=== PATIENT | female | born 1930 | race Caucasian/White ===

== ENCOUNTER 2017-03-29 10:51 | Inpatient (IN) | payer MEDICARE, OTHER ==
[~2017-03-29] VITALS: Ht 157.5 cm; Wt 64.4 kg
[2017-03-29] VITALS (7 sets, daily range): BP systolic 108–142; BP diastolic 47–80; PULSE 67–81; RESP 18–20; O2SAT 93–99
--- NOTE | 2017-03-29 10:58 | ED.REPORT ---
HPI-Altered Mental Status Date of Service Mar 29, 2017 ED Provider: Jose Chan DO An 86 year old female with a history of recurrent UTI's, hypertension hypothyroidism, acid reflux disease and hyperlipidemia presents to the ED via EMS with worsening weakness and confusion that occurred this afternoon. The patient's friends reportedly contacted EMS after finding the patient on the ground with significant confusion. Patient is unsure how long she was laying on the ground and denies any memory of a fall. The patient was reportedly diagnosed with a UTI on 03/25. Patient denies any pain. She has taken her medication as directed except for this morning. Patient denies history of kidney failure. Nursing Notes Stated Complaint: CONFUSION Chief Complaint: General Complaint Nursing Notes Reviewed: Yes Allergies: Coded Allergies: Penicillins (Verified Allergy, Severe, 05/10/09) Scheduled Alendronate (Alendronate) 35 Mg Tablet 35 MG PO WEEKLY Amlodipine (Amlodipine) 2.5 Mg Tablet 2.5 MG PO DAILY Aspirin (Aspirin) 81 Mg Tablet 81 MG PO HS Calcium Carbonate/Vitamin D3 (Calcium + Vitamin D Tablet) 1 Each Tablet 1 EACH PO BID Estrogens Conjugated (Premarin) 0.625 Mg Tablet 0.625 MG PO DAILY Levothyroxine (Levothyroxine) 100 Mcg Tablet 100 MCG PO DAILY Losartan/HCTZ 100-25 mg (Hyzaar 100-25 mg) 1 Each Tablet 1 TABLET PO DAILY Metoprolol Tartrate (Metoprolol Tartrate) 50 Mg Tablet 50 MG PO BID Nebivolol (Bystolic) 2.5 Mg Tablet 2.5 MG PO QAM Simvastatin (Simvastatin) 20 Mg Tablet 20 MG PO HS Vit A/Vit C/Vit E/Zinc/Copper (Preservision Areds Softgel) 1 Each Capsule 1 EACH PO BID General Time Seen by MD: 10:55 Chief Complaint Confused Hx Obtained From: Patient Arrived By: Ambulance Sudden in Onset?: No Onset Occurred: Just prior to arrival Symptom Duration: Since onset Pertinent Negative: Pt denies other symptoms Recent Healthcare: No recent hospitalization, Recent doctor visit Risk Factors )( IC Bleed Risk Strat RF Statements: Risk factors reviewed )( SAH Risk Stratification RF Statements: Risk factors reviewed Past Medical History Past Medical History Hypertension Hyperlipidemia Hypothyrodism Recurrent UTI's Acid reflux disease Past Surgical History None reported. Smoking History Unknown if Ever Smoker Social History Other Social History: Good social support, Lives alone, Local resident Ambulatory Status Independent Review of Systems + recent fall + memory loss Neurologic: Reports: Weakness Psychiatric: Reports: Confusion Complete sys rev & neg: except as marked. Physical Exam Initial Vital Signs Vital Signs (First) Date Time Temp Pulse Resp B/P Pulse Ox O2 Delivery O2 Flow Rate FiO2 03/29/17 10:52 36.2 81 20 129/61 99 Room Air Initial VS: Reviewed Extremities: Vascular intact, Neuro intact, No swelling, No tenderness Skin: Warm, Dry, No cyanosis Psychiatric: Mood/affect normal, Behavior normal, Normal thought content General/Constitutional: Awake, Alert, No acute distress GENERAL: Hard of hearing Head / Eyes: Atraumatic, Normocephalic, PERRL Neck: Atraumatic, Supple, Full range of motion Respiratory / Chest: Atraumatic, Breath sounds NL, Breath sounds = bilat, No respiratory distress RESPIRATORY: Cough present Cardiovascular: Heart rate NL, Regular rhythm, Heart sounds NL Neurologic: Oriented X3, Speech NL, No motor deficits, No sensory deficits, CN II - XII intact, Reflexes equal bilat Abdomen: Atraumatic, Soft, Non-tender, No guarding, No rebound, No distention Back: Atraumatic, Inspection NL, Non-tender, No midline vertebral tend, No paraspinal tenderness Interpretation & Diagnostics Lab Results Interpretation Result Diagram: 03/29/17 1120 03/29/17 1120 Test 03/29/17 11:20 03/29/17 11:24 03/29/17 11:57 White Blood Count 27.4th/mm3 (3.8-10.1) Red Blood Count 4.22mil/mm3 (3.90-5.20) Hemoglobin 12.4g/dL (12.0-15.6) Hematocrit 35.3% (35.0-46.0) Mean Corpuscular Volume 83.6fL (81-100) Mean Corpuscular Hemoglobin 29.4pg (27.0-35.0) Mean Corpuscular Hemoglobin Concent 35.1% (32.0-37.0) Red Cell Distribution Width 13.7% (12.3-15.4) Platelet Count 214bil/L (150-400) Neutrophils (%) (Auto) 90% (40-74) Lymphocytes (%) (Auto) 2% (14-46) Monocytes (%) (Auto) 4% (4-12) Eosinophils (%) (Auto) 0% (0-5) Basophils (%) (Auto) 0% (0-3) Band Neutrophils % 4% (1-5) Prothrombin Time 11.2sec (8.1-12.5) Prothromb Time International Ratio 1.05ratio Sodium Level 133mEq/L (134-144) Potassium Level 3.3mEq/L (3.5-5.2) Chloride Level 92mEq/L (97-108) Carbon Dioxide Level 18mmol/L (18-29) Blood Urea Nitrogen 73mg/dL (8-27) Creatinine 4.64mg/dL (0.57-1.00) Estimat Glomerular Filtration Rate 13mL/min (>59) Glucose Level 97mg/dL (60-99) Calcium Level 10.7mg/dL (8.5-10.1) Magnesium Level 1.5mg/dL (1.6-2.6) Total Bilirubin 0.5mg/dL (0.0-1.2) Aspartate Amino Transf (AST/SGOT) 84U/L (0-50) Alanine Aminotransferase (ALT/SGPT) 42U/L (0-32) Alkaline Phosphatase 196U/L (25-165) Total Creatine Kinase 1997U/L (21-215) Troponin T 0.026ug/L (0.0-0.011) Total Protein 7.1g/dL (6.4-8.4) Albumin 2.9g/dL (3.4-5.0) Procalcitonin 58.00ng/mL (0.00-0.08) Urine Color Straw (YELLOW) Urine Appearance Hazy (CLEAR,HAZY) Urine pH 6.0 (5.0-8.0) Urine Specific [place] 1.015 (1.003-1.035) Urine Protein 100mg/dL (NEG,TRACE) Urine Glucose (UA) Negativemg/dL (NEGATIVE) Urine Ketones Negativemg/dL (NEGATIVE) Urine Occult Blood Large (NEGATIVE) Urine Nitrite Negative (NEGATIVE) Urine Bilirubin Negative (NEGATIVE) Urine Urobilinogen Normalmg/dL (NORMAL) Urine Leukocyte Esterase Large (NEGATIVE) Urine RBC 3-10/hpf (0-2) Urine WBC >50/hpf (0-5) Urine Epithelial Cells Occasional/hpf (NONE-MOD) Urine Crystals None seen (NONE SEEN) Urine Bacteria Many/hpf (NONE-FEW) Urine Hyaline Casts None/lpf (NONE) Urine Granular Casts None seen (NONE SEEN) Urine Waxy Casts None seen (NONE SEEN) Urine Red Blood Cell Casts None seen (NONE SEEN) Urine White Blood Cell Casts None seen (NONE SEEN) Urine Mucus None seen (None Seen) Urine Trichomonas None seen (NONE SEEN) Urine Yeast None (NONE SEEN) Urinalysis Comment None Urine Culture Reflexed Indicated Hold Purple Top Tube Received (Received) Hold Blue Top Tube Received (Received) Lactic Acid Level 2.2mmol/L (0.4-2.0) Hold [place] Top Tube Received (Received) ECG Interpretation ECG Interpretation: Sinus Rhythm Rate 73 bpm Incomplete LBBB Time: 11:29 Interpreted by: ED physician X-Ray Chest Interpretation Chest Xray Interpretation: IMPRESSION: Bibasilar pulmonary opacities may represent atelectasis caused by shallow inspiration. Recommend confirmation with a PA and lateral chest radiograph performed when the patient is able to follow breathing instructions. Dictated by: Ajay Tom M.D. on 03/29/2017 at 11:49 Interpretation / Wet Read by: Interpret - Radiologist CT Head Interpretation IMPRESSION: 1. No acute intracranial abnormality. 2. Age-related atrophy and chronic white matter ischemic changes. Dictated by: James Hare M.D. on 03/29/2017 at 12:29 Study: Head CT no contrast Interpretation / Wet Read by: Interpret - Radiologist Re-Eval/Medical Decision Med Decision/Clinical Course Likely urosepsis with superimposed acute kidney injury. IV Rocephin given. Patient will be admitted. Re-Evaluation/Progress #1: Time of Eval: 12:23 Re-Evaluation/Progress Note: Symptoms have improved upon recheck. She is informed of her current results. Re-Evaluation/Progress #2: Time of Eval: 12:33 Patient Status: Condition improved Re-Evaluation/Progress Note: Patient is rechecked. She is informed of the plan to admit. Consultation : Referral / Consult Name: Linda Alexander DO Consulted With: Hospitalist Call Returned at: 12:58 Regional Driver: Will see patient, Agrees with eval, Agrees with plan, Accepts admit Note: Discussed pt condition. Will accept admission. Counseled Regarding: Diagnosis, Lab results, Need for admission Patient Discharge & Departure Impression: Primary Impression: Rhabdomyolysis Rhabdomyolysis type: non-traumatic Qualified Code: M62.82 - Rhabdomyolysis Additional Impressions: Urinary tract infection Urinary tract infection type: site unspecified Hematuria presence: without hematuria Qualified Code: N39.0 - Urinary tract infection, site not specified Dehydration Acute renal injury Disposition: ADMITTED TO HOSPITAL Discharge Condition All VS Reviewed: Yes Condition: Stable Referrals: Bartolo Durán MD (PCP) Scribe Attestation Portions of this note were transcribed by Julita Avalos. I, Dr. Josh Valentin, personally performed the history, physical exam and medical decision-making; I reviewed and confirmed the accuracy of the information in the transcribed note. Signed by: Julita Avalos, 03/29/17. copies to: Bartolo Durán MD, Timothy S DO Mar 29, 2017 10:58 JULITA AVALOS Mar 29, 2017 11:15
[2017-03-29] MEDS ORDERED: 0.9% Sodium Chloride 1,000 ML IV ONE (11:16)
[2017-03-29 11:28] LABS: Mean Corpuscular Hemoglobin 29.4 pg (27.0-35.0); Mean Corpuscular Volume 83.6 fL (81-100); Platelet Count 214 bil/L (150-400)
[2017-03-29 11:34] LABS: INR 1.05 ratio
--- NOTE | 2017-03-29 11:53 | DRSVH ---
PROCEDURE: X-RAY CHEST ONE VIEW, PORTABLE ([id number]) INDICATIONS: generalized weakness TECHNIQUE: One view of the chest was acquired. COMPARISON: None. FINDINGS: Surgical changes and devices: None. Lungs and pleura: No pleural effusions or pneumothorax. Right basilar pulmonary opacities otherwise the lungs are clear. Mediastinum: Prominent cardiomediastinal silhouette cause at least partially by shallow inspiration. Bones and chest wall: No suspicious bony lesions. Overlying soft tissues appear unremarkable. Left shoulder degenerative change. IMPRESSION: Bibasilar pulmonary opacities may represent atelectasis caused by shallow inspiration. Recommend conf irmation with a PA and lateral chest radiograph performed when the patient is able to follow breathin g instructions. Dictated by: Ajay Tom M.D. on 03/29/2017 at 11:49 Approved by: Ajay Tom M.D. on 03/29/2017 at 11:51
[2017-03-29] MEDS ORDERED: 0.9% Sodium Chloride 1,000 ML IV SCH ×2 (11:55→14:03)
[2017-03-29 11:58] LABS: APPEARANCE,URINE HAZY (CLEAR,HAZY); COLOR,URINE STRAW (YELLOW)
[2017-03-29 11:59] LABS: OCCULT BLOOD,URINE LARGE (NEGATIVE); UROBILINOGEN,URINE NORMAL (NORMAL)
[2017-03-29] MEDS ORDERED: cefTRIAXone Inj 2,000 MG in Dextrose 5% Minibag Plus 50 ML IV ONE (12:05)
[2017-03-29 12:21] LABS: Magnesium 1.5 mg/dL (1.6-2.6); TROPONIN T 0.026 ug/L (0.0-0.011)
[2017-03-29] MEDS ORDERED: Magnesium Sulf 2 Gm/50mL Water 2 GM in IV Premix 1 EACH IV ONE ×2 (12:25→15:45)
[2017-03-29] MEDS ORDERED: Potassium Chloride 20 mEq/15 mL 15mL Oral Soln PO ONE (12:30)
--- NOTE | 2017-03-29 12:33 | DRSVH ---
PROCEDURE: CT BRAIN WITHOUT CONTRAST ([id number]) INDICATIONS: weakness, fall TECHNIQUE: Noncontrast 4.5 mm thick angled axial sections acquired from the foramen magnum to the vertex, with c oronal reformats. COMPARISON: None. FINDINGS: Image quality: Excellent. CSF spaces: Basal cisterns are patent. No extra-axial fluid collections. The ventricles are symmet shay in size and shape. Brain: No intracranial bleeds or masses. There is cerebral volume loss for age, with resultant vent ricular and sulcal prominence. There are periventricular and deep white matter chronic small vessel ischemic changes. There is intracranial internal carotid artery atherosclerosis. Skull and face: Calvarium and visualized facial bones appear intact, without suspicious lesions. Sinuses: Visualized sinuses and mastoids are clear. IMPRESSION: 1. No acute intracranial abnormality. 2. Age-related atrophy and chronic white matter ischemic changes. Dictated by: James Hare M.D. on 03/29/2017 at 12:29 Approved by: James Hare M.D. on 03/29/2017 at 12:31
[2017-03-29 12:49] LABS: BASOPHILS % (AUTO) 0 % (0-3); EOSINOPHILS % (AUTO) 0 % (0-5); MONOCYTES % (AUTO) 4 % (4-12); NEUTROPHILS % (AUTO) 90 % (40-74)
--- NOTE | 2017-03-29 13:04 | PCM.HPMED ---
Subjective Date of Service Mar 29, 2017 Primary Provider: Admitting Physician: Primary Care Physician: Bartolo Druán MD Attending Physician: Chief Complaint: Fall with altered mental status History of Present Illness: The patient is 86-year-old female who presents to the emergency room secondary to altered mental status. The patient currently lives at home alone and her friends had not seen her in a while and stopped by to see her and found her down on the ground and the place was disheveled and they decided to call EMS. When asked the patient stated that the last thing she remembered was that she was on her way to the bathroom but then fell however she is unable to state how long she had been down or if she had hit her head. The patient is currently confused and is unable to answer all questions appropriately. A CT of the head was done as the patient was unable to remember if she had which was found to be negative for any acute intracranial processes. A chest x-ray was also performed in the ED which shows bibasilar pulmonary opacities however this may be consistent with atelectasis. The patient's white blood cell count was found to be significantly elevated at 27.4 with 4% bands, patient's sodium was 133, potassium 3.3, creatinine 4.64, troponin 0.026, procalcitonin 58, lactic acid 2.2, magnesium 1.5. The patient' s urine was positive for many bacteria and leukocyte esterase. Patient's urine was sent for culture and the patient is being admitted for acute encephalopathy most likely secondary to cystitis The patient has altered mental status and there were no family members at the side of the bed nor was anybody able to be reached by phone. The patient's history was taken via chart review, EMS, and pharmacy review. Allergies Coded Allergies: Penicillins (Verified Allergy, Severe, 05/10/09) [facility] Social History Smoking Status: Unknown if Ever Smoker Exam Vital Signs Vital Sign - Last Date Time Temp Pulse Resp B/P Pulse Ox O2 Delivery O2 Flow Rate FiO2 03/29/17 12:51 35.0 72 20 108/80 98 Room Air Lab and Diagnostics Result Diagram: 03/29/17 1120 03/29/17 1120 Assessment & Plan Home medications: Obtained through pharmacy Alendronate 35 mg by mouth weekly Amlodipine 2.5 mg daily Aspirin 81 mg by mouth daily at bedtime Calcium carbonate with vitamin D3 one by mouth twice a day Premarin 0.625 by mouth daily Levothyroxine 100 g daily Losartan/hydrochlorothiazide 100/25 mg by mouth daily Metoprolol 50 mg by mouth twice a day Simvastatin 20 mg by mouth daily at bedtime PreserVision 1 by mouth twice a day Allergies: Penicillin causes swelling PMHx: Osteoporosis Hypertension Hypothyroidism Hyperlipidemia Possible CAD SHx: Unknown secondary to patient has altered mental status and no family members could be contacted FHx: Unknown secondary to patient having altered mental status and no family members could be contacted SocHx: Unknown secondary to patient having altered mental status and no family members could be contacted Occupation: Tobacco history: Patient denies Alcohol use: Patient denies Drug use: Patient denies ROS: A complete review of systems was performed or attempted to be performed. Please see HPI for pertinent positives, all other systems are negatives as much as could be gathered from the patient. Physical Exam: GEN: Patient was awake, alert, not responding appropriately to questions and seemed confused but able to follow directions HEENT: Pupils equal round and reactive to light, extraocular eye muscles intact , Neck soft supple, trachea midline, nomocephalic/atraumatic CV: +S1/S2, regular rate and rhythm, no murmur auscultated Respiratory: CTAB, no wheezes, rales, rhonchi GI: +bowel sounds x4, soft, compressible, nontender to palpation EXT: no clubbing, cyanosis, edema Neuro: Cranial nerves II-XII grossly intact Psych: mood and affect were distracted Assessment and Plan 86-year-old female with past medical history of osteoporosis, hypertension, hypothyroidism, hyperlipidemia, possible CAD presents for a fall down for unknown time and sepsis and acute encephalopathy most likely secondary to cystitis Sepsis with acute encephalopathy most likely secondary to acute cystitis, present on admission, active - Patient meets criteria secondary to temperature 35C, blood cell count 27.4, urine as a source of infection -Urine culture results pending -Blood cultures results pending - Continue 2 g of Rocephin daily -Continue gentle hydration -Follow up labs in the morning - Swallow eval for safety as patient is currently encephalopathic - Continue to trend procalcitonin and lactic acid -Continue to monitor Rhabdomyolysis most likely secondary to prolonged stay on the ground secondary to fall, present on admission, active -CK 1996 -Continue gentle hydration 100 mL an hour (unsure if patient has a history of CHF continue to monitor for volume overload) -Continue to monitor Acute kidney injury most likely secondary to dehydration, present on admission, acute -Continue with gentle hydration -Continue to monitor - Hold losartan and HCTZ Hypomagnesemia, present on admission, active -Magnesium is currently 1.5 -Replete with 2 g of mag (03/29/2017) - Follow-up labs in the morning Hypokalemia, present on admission, active -Potassium on admission was 3.3 -Replete with 40 mEq IV 1 dose -Follow up labs in the morning -Continue to monitor Elevated LFTs, present on admission, active -Most likely secondary to rhabdomyolysis and sepsis -Continue monitor Hypothyroidism, present on admission, stable -Follow up TSH -Continue levothyroxine 100 g by mouth daily Hyperlipidemia, present on admission, stable -Lipid panel pending -Continue simvastatin 20 mg by mouth daily at bedtime Hypertension, present on admission, stable -Currently controlled -Continue metoprolol by mouth twice a day -Hold losartan and HCTZ as patient has acute kidney injury - Hold amlodipine may restart when patient's blood pressure becomes elevated Code Status: Full code Disposition: Due to the nature of the patient's current diagnosis anticipated stay is greater than 2 midnight. At this time nursing is trying to contact one of the patient's 5 sons in order to let them know that the patient is here. The patient did state that the person who found her stated that he would contact her family however unsure if this is true or not as the patient does have acute encephalopathy. At this time because no family is able to be found in order to verify the patient's CODE STATUS she remains full code. Time spent greater than 45 min Linda Alexander DO Mar 29, 2017 13:04
[2017-03-29] MEDS ORDERED: NEBI2.5T5 PO (13:43)
[2017-03-29] MEDS ORDERED: SIMV20TA4 PO (13:43)
[2017-03-29] MEDS ORDERED: ALEN35TA31 PO (13:43)
[2017-03-29] MEDS ORDERED: CALC-140 PO (13:43)
[2017-03-29] MEDS ORDERED: VIT1CAPS10 PO (13:43)
[2017-03-29] MEDS ORDERED: LOSA1TAB15 PO (13:43)
[2017-03-29] MEDS ORDERED: ASPI-973 PO (13:43)
[2017-03-29] MEDS ORDERED: PRE625 PO (13:43)
[2017-03-29] MEDS ORDERED: METO50TA3 PO (13:43)
[2017-03-29] MEDS ORDERED: LEVO100T6 PO (13:43)
[2017-03-29] MEDS ORDERED: AMLO2.5T PO (13:43)
[2017-03-29] MEDS ORDERED: Ondansetron 2 mg/mL 2 mL Inj IVPUSH PRN ×2 (14:05→15:05)
[2017-03-29] MEDS ORDERED: Alum-Mag Hydrox-Simeth 30 mL Suspension PO PRN ×2 (14:05→15:05)
[2017-03-29] MEDS: 0.9% Sodium Chloride 1,000 ML IV SCH ×2 (15:02→22:51)
[2017-03-29] MEDS ORDERED: Polyethylene Glycol (PEG) 17 Gm Powder PO PRN (15:05)
[2017-03-29] MEDS ORDERED: KCl 40 mEq/D5W 500 mL 40 MEQ in IV Premix 1 EACH IV ONE (15:45)
[2017-03-29] MEDS ORDERED: KCl 20 mEq/250 mL D5W (K 3 - 3.7 & Cr 2.1 - 2.9) IV ONE ×2 (16:05)
[2017-03-29] MEDS: Heparin 5,000 Unit/mL Inj SUBQ SCH (16:58)
[2017-03-29] MEDS: Vitamin B Complex/Vit C Tablet PO SCH (20:14)
[2017-03-30] VITALS (9 sets, daily range): BP systolic 113–146; BP diastolic 53–77; PULSE 72–86; RESP 16–18; O2SAT 93–94
[2017-03-30] MEDS: Heparin 5,000 Unit/mL Inj SUBQ SCH ×3 (00:33→16:42)
[2017-03-30 06:47] LABS: BASOPHILS % (AUTO) 0.1 % (0-3); EOSINOPHILS % (AUTO) 1.4 % (0-5); Mean Corpuscular Hemoglobin 29.3 pg (27.0-35.0); Mean Corpuscular Volume 82.9 fL (81-100); NEUTROPHILS % (AUTO) 84.7 % (40-74); Platelet Count 190 bil/L (150-400)
[2017-03-30] MEDS: Vitamin B Complex/Vit C Tablet PO SCH ×2 (08:20→20:27)
[2017-03-30] MEDS: 0.9% Sodium Chloride 1,000 ML IV SCH ×2 (08:27→09:29)
[2017-03-30] MEDS ORDERED: cefTRIAXone Inj 2,000 MG in Dextrose 5% Minibag Plus 50 ML IV SCH (08:30)
--- NOTE | 2017-03-30 08:38 | PCM.PNMED ---
Subjective Date of Service Mar 30, 2017 Subjective Pt has rigors this AM. Alert and Awake Exam Vital Signs Vital Sign - Last Date Time Temp Pulse Resp B/P Pulse Ox O2 Delivery O2 Flow Rate FiO2 03/30/17 06:11 81 03/30/17 04:34 36.9 16 114/65 93 Room Air Intake and Output 03/29/17 03/29/17 03/30/17 Cumulative From/Thru 15:00 23:00 07:00 03/29/17 10:52 - 03/30/17 06:50 Intake Total 1998 ml 525 ml 2229 ml 4752 ml Output Total 250 ml 400 ml 650 ml Balance 1998 ml 275 ml 1829 ml 4102 ml Intake Oral 525 ml 300 ml 825 ml IV Total 1998 ml 1929 ml 3927 ml Output Urine Total 250 ml 400 ml 650 ml # Bowel Movements 1 1 Exam GEN: Patient was awake, alert, +Rigors HEENT: Pupils equal round and reactive to light, extraocular eye muscles intact , Neck soft supple, trachea midline, nomocephalic/atraumatic CV: +S1/S2, regular rate and rhythm, no murmur auscultated Respiratory: CTAB, no wheezes, rales, rhonchi GI: +bowel sounds x4, soft, compressible, nontender to palpation No CVAT EXT: no clubbing, cyanosis, edema Neuro: Cranial nerves II-XII grossly intact Psych: mood and affect were distracted IVs and Medications Medications Reviewed: Medications were reviewed in detail Lab and Diagnostics Result Diagram: 03/30/17 0624 03/30/17 0624 Microbiology Laboratory Tests Test 03/29/17 11:20 03/29/17 11:24 03/29/17 11:57 03/29/17 17:17 White Blood Count 27.4th/mm3 (3.8-10.1) Red Blood Count 4.22mil/mm3 (3.90-5.20) Hemoglobin 12.4g/dL (12.0-15.6) Hematocrit 35.3% (35.0-46.0) Mean Corpuscular Volume 83.6fL (81-100) Mean Corpuscular Hemoglobin 29.4pg (27.0-35.0) Mean Corpuscular Hemoglobin Concent 35.1% (32.0-37.0) Red Cell Distribution Width 13.7% (12.3-15.4) Platelet Count 214bil/L (150-400) Neutrophils (%) (Auto) 90% (40-74) Lymphocytes (%) (Auto) 2% (14-46) Monocytes (%) (Auto) 4% (4-12) Eosinophils (%) (Auto) 0% (0-5) Basophils (%) (Auto) 0% (0-3) Band Neutrophils % 4% (1-5) Prothrombin Time 11.2sec (8.1-12.5) Prothromb Time International Ratio 1.05ratio Sodium Level 133mEq/L (134-144) Potassium Level 3.3mEq/L (3.5-5.2) Chloride Level 92mEq/L (97-108) Carbon Dioxide Level 18mmol/L (18-29) Blood Urea Nitrogen 73mg/dL (8-27) Creatinine 4.64mg/dL (0.57-1.00) Estimat Glomerular Filtration Rate 13mL/min (>59) Glucose Level 97mg/dL (60-99) Calcium Level 10.7mg/dL (8.5-10.1) Magnesium Level 1.5mg/dL (1.6-2.6) Total Bilirubin 0.5mg/dL (0.0-1.2) Aspartate Amino Transf (AST/SGOT) 84U/L (0-50) Alanine Aminotransferase (ALT/SGPT) 42U/L (0-32) Alkaline Phosphatase 196U/L (25-165) Total Creatine Kinase 1997U/L (21-215) Troponin T 0.026ug/L (0.0-0.011) 0.024ug/L (0.0-0.011) Total Protein 7.1g/dL (6.4-8.4) Albumin 2.9g/dL (3.4-5.0) Procalcitonin 58.00ng/mL (0.00-0.08) Urine Color Straw (YELLOW) Urine Appearance Hazy (CLEAR,HAZY) Urine pH 6.0 (5.0-8.0) Urine Specific [place] 1.015 (1.003-1.035) Urine Protein 100mg/dL (NEG,TRACE) Urine Glucose (UA) Negativemg/dL (NEGATIVE) Urine Ketones Negativemg/dL (NEGATIVE) Urine Occult Blood Large (NEGATIVE) Urine Nitrite Negative (NEGATIVE) Urine Bilirubin Negative (NEGATIVE) Urine Urobilinogen Normalmg/dL (NORMAL) Urine Leukocyte Esterase Large (NEGATIVE) Urine RBC 3-10/hpf (0-2) Urine WBC >50/hpf (0-5) Urine Epithelial Cells Occasional/hpf (NONE-MOD) Urine Crystals None seen (NONE SEEN) Urine Bacteria Many/hpf (NONE-FEW) Urine Hyaline Casts None/lpf (NONE) Urine Granular Casts None seen (NONE SEEN) Urine Waxy Casts None seen (NONE SEEN) Urine Red Blood Cell Casts None seen (NONE SEEN) Urine White Blood Cell Casts None seen (NONE SEEN) Urine Mucus None seen (None Seen) Urine Trichomonas None seen (NONE SEEN) Urine Yeast None (NONE SEEN) Urinalysis Comment None Urine Culture Reflexed Indicated Hold Purple Top Tube Received (Received) Hold Blue Top Tube Received (Received) Lactic Acid Level 2.2mmol/L (0.4-2.0) Hold Beryl Top Tube Received (Received) Test 03/30/17 06:24 White Blood Count 16.9th/mm3 (3.8-10.1) Red Blood Count 3.69mil/mm3 (3.90-5.20) Hemoglobin 10.8g/dL (12.0-15.6) Hematocrit 30.6% (35.0-46.0) Mean Corpuscular Volume 82.9fL (81-100) Mean Corpuscular Hemoglobin 29.3pg (27.0-35.0) Mean Corpuscular Hemoglobin Concent 35.3% (32.0-37.0) Red Cell Distribution Width 13.8% (12.3-15.4) Platelet Count 190bil/L (150-400) Neutrophils (%) (Auto) 84.7% (40-74) Lymphocytes (%) (Auto) 8.0% (14-46) Monocytes (%) (Auto) 5.0% (4-12) Eosinophils (%) (Auto) 1.4% (0-5) Basophils (%) (Auto) 0.1% (0-3) Sodium Level 136mEq/L (134-144) Potassium Level 3.5mEq/L (3.5-5.2) Chloride Level 101mEq/L (97-108) Carbon Dioxide Level 13mmol/L (18-29) Blood Urea Nitrogen 69mg/dL (8-27) Creatinine 3.97mg/dL (0.57-1.00) Estimat Glomerular Filtration Rate 15mL/min (>59) Glucose Level 108mg/dL (60-99) Lactic Acid Level 0.9mmol/L (0.4-2.0) Calcium Level 8.6mg/dL (8.5-10.1) Magnesium Level 2.0mg/dL (1.6-2.6) Total Bilirubin 0.2mg/dL (0.0-1.2) Aspartate Amino Transf (AST/SGOT) 33U/L (0-50) Alanine Aminotransferase (ALT/SGPT) 31U/L (0-32) Alkaline Phosphatase 130U/L (25-165) Total Creatine Kinase 202U/L (21-215) Total Protein 4.7g/dL (6.4-8.4) Albumin 2.1g/dL (3.4-5.0) Triglycerides Level 350mg/dL (0-149) Cholesterol Level 138mg/dL (100-199) LDL Cholesterol, Calculated 64.000mg/dL (0-99) VLDL Cholesterol 70.000mg/dL HDL Cholesterol 4mg/dL (>39) Cholesterol/HDL Ratio 34.50 (0.0-4.4) Procalcitonin 40.37ng/mL (0.00-0.08) Thyroid Stimulating Hormone (TSH) 7.050uIU/mL (0.450-4.500) Microbiology 03/29/17 Blood Culture, Received Pending 03/29/17 Urine Culture - Preliminary, Resulted X-Rays, CTs and MRIs 03/29/17 1116 X-RAY CHEST ONE VIEW, PORTABLE IMPRESSION: Bibasilar pulmonary opacities may represent atelectasis caused by shallow inspiration. Recommend confirmation with a PA and lateral chest radiograph performed when the patient is able to follow breathing instructions. Assessment & Plan 86-year-old female with past medical history of osteoporosis, hypertension, hypothyroidism, hyperlipidemia, possible CAD presents for a fall down for unknown time and sepsis and acute encephalopathy most likely secondary to cystitis Septicemia due to Ecoli Cystitis, present on admission, active - Criteria- temperature 35C, blood cell count 27.4, urine is likely source of infection. Urine culture- GNR. Blood cultures- +Ecoli. - Due to marked TRAY, contrast CT not ordered. Instead Renal US to evaluate for obstruction. - Rocephin started on 03/29, changed to Ertapenam on 03/30 500mg daily, renal dosing given worsening rigors. If GFR >30 can give full 1g qd dose. - Continue gentle hydration, add Bicarb gtt due to metabolic acidosis. Acute kidney injury, acute, active- Multifactorial etiology. Given Cystitis likely component of ATN. Rule out Post-Renal. Initial Scr 4.64. Modest improvement. - Rule out obstructive uropathy with Renal US. - Continue hydration. - Hold losartan and HCTZ - Monitor Scr for improvement. - Discussed case with Becky, will order for official consult if no improvement. - Consider Urology consult if abd Renal US. Rhabdomyolysis most likely secondary to prolonged stay on the ground secondary to fall, present on admission, resolved. -CK 1996 on admit. -Continue gentle hydration 100 mL an hour (unsure if patient has a history of CHF continue to monitor for volume overload) -Continue to monitor Hypertension, present on admission, stable -Currently controlled -Continue metoprolol by mouth twice a day -Hold losartan and HCTZ as patient has acute kidney injury -Hold amlodipine may restart when patient's blood pressure becomes elevated Bibasilar pulmonary opacities on CXR- poa, active- less likely PNA, given clear urinary source. Will get CXR 2 View PA and Lat once med stable. Abx as above should also cover for PNA. Hypomagnesemia, present on admission, active -Magnesium 1.5 on admit. Replete prn. Hypokalemia, present on admission, active -Replete prn. Elevated LFTs, present on admission, active. -Most likely secondary to rhabdomyolysis and sepsis -Continue monitor Hypothyroidism, present on admission, stable -TSH- 7. -Continue levothyroxine 100 g by mouth daily Hyperlipidemia, present on admission, stable -Lipid panel- TG elevated 350. -Continue simvastatin 20 mg by mouth daily at bedtime Code Status: Full code Disposition: Due to the nature of the patient's current diagnosis anticipated stay is greater than 2 midnight. At this time nursing is trying to contact one of the patient's 5 sons in order to let them know that the patient is here. The patient did state that the person who found her stated that he would contact her family however unsure if this is true or not as the patient does have acute encephalopathy. At this time because no family is able to be found in order to verify the patient's CODE STATUS she remains full code. Pain Evaluation: Adequate Pain Control VTE Prophylaxis: Sub-Q Heparin (Unfractionated) Resuscitation Status: CPR: Attempt Resuscitation Yuniel Ingram MD Mar 30, 2017 08:38 VTE Prophylaxis: Sub-Q Heparin (Unfractionated) Resuscitation Status: CPR: Attempt Resuscitation Yuniel Ingram MD Mar 30, 2017 08:38
[2017-03-30] MEDS ORDERED: Ertapenem Inj 500 MG in 0.9% Sodium Chloride 50 ML IV ONE (08:54)
[2017-03-30] MEDS ORDERED: SODIUM BICARB IV ONE (11:00)
[2017-03-30] MEDS ORDERED: DEXTROSE 5% IV ONE (11:00)
[2017-03-30 13:31] LABS: BASOPHILS % (AUTO) 0.1 % (0-3); Mean Corpuscular Hemoglobin 29.4 pg (27.0-35.0); Mean Corpuscular Volume 82.7 fL (81-100); Platelet Count 174 bil/L (150-400)
--- NOTE | 2017-03-30 15:25 | DRSVH ---
PROCEDURE: US RENAL SONOGRAM INDICATIONS: Evaluate for obstruction, p/w urosepsis TECHNIQUE: Real-time scanning was performed of the kidneys and bladder, with image documentation. COMPARISON: None. FINDINGS: Kidneys: Kidneys are normal in size. Right kidney measures 10.1 cm long; left kidney measures 12.0 cm long. Right renal cortical thickness is 1.5 cm; left renal cortical thickness is 1.8 cm. Renal c ortical echotexture is normal. Left-sided renal stones are noted. Moderate left-sided hydronephrosis is noted. Bladder: Bladder was completely decompressed by Cleary catheter time of image acquisition. Miscellaneous: No free pelvic fluid. IMPRESSION: A 1. Left-sided renal stones. 2. Moderate left-sided hydronephrosis. 3. No right-sided renal stones or hydronephrosis. Dictated by: Audrey Wells MD, PhD on 03/30/2017 at 15:21 Approved by: Audrey Wells MD, PhD on 03/30/2017 at 15:23
--- NOTE | 2017-03-30 17:49 | DRSVH ---
PROCEDURE: CT KUB ([id number]) INDICATIONS: Left Nephrolithiasis w/ Hydronephrosis TECHNIQUE: Noncontrast 5 mm thick sections acquired from the diaphragms to the symphysis. 5 mm thick coronal an d sagittal reformats were then performed. For radiation dose reduction, the following was used: aut omated exposure control, adjustment of mA and/or kV according to patient size. COMPARISON: None. FINDINGS: Image quality: Excellent. Lung bases: Consolidation noted in the lung bases bilaterally which could represent atelectasis, asp iration or pneumonia. Small bilateral pleural fluid collections noted. Heart size is normal. Dense atherosclerotic calcifications noted in the visualized coronary vasculature. Urinary system: Both kidneys are normal in size. There is an 8 mm maximum diameter nonobstructing s tone in the inferior pole of the left kidney. There is a 1 mm nonobstructing stone in the inferior p ole of the left kidney. There is a 2 mm nonobstructing stone in the interpolar left kidney. There i s moderate to severe left sided hydronephrosis to the level of the proximal left ureter. No obstruct ing stone is identified the proximal left ureter. Findings compatible with proximal left ureter stri cture which could be benign or neoplastic. Urinary bladder decompressed by Cleary catheter. No defin ite bladder stones identified. Other solid organs: Liver and spleen are normal in size. Gallbladder contains a gallstone.. Pancre as is normal in contours. No adrenal nodules. Peritoneum and bowel: Unenhanced bowel loops demonstrate normal wall thickness and caliber. Colonic diverticuli without evidence of diverticulitis noted. No free fluid or air. The appendix is normal. Nodes and vessels: No retroperitoneal or mesenteric adenopathy by size criteria. Aorta and inferior vena cava are normal in caliber. Abdominal wall: No ventral hernias. Pelvis: No free pelvic fluid. Bilateral fat containing inguinal hernias. No adenopathy. Uterus is absent. Bones: No suspicious bony lesions. No vertebral body compression fractures. Spine degenerative dise ase and facet arthropathy noted. Fixation hardware noted in lower lumbar spine. Right hip arthropla sty noted. IMPRESSION: 1. Moderate to severe left-sided hydronephrosis the level of the proximal left ureter. No obstructi ng renal stone identified in left ureter. Findings compatible with a proximal left ureteral strictur e which could be benign or malignant. 2. Nonobstructing stones in the inferior pole of the left kidney. 3. Cholelithiasis. 4. Consolidation in the lung bases bilaterally compatible with atelectasis, aspiration or pneumonia. 5. Small bilateral pleural effusions. 6. Colonic diverticulosis without evidence of diverticulitis. 7. Atherosclerosis including dense atherosclerotic calcifications in the visualized coronary vascula ture. Dictated by: Audrey Wells MD, PhD on 03/30/2017 at 17:40 Approved by: Audrey Wells MD, PhD on 03/30/2017 at 17:48
[2017-03-30] MEDS ORDERED: Potassium Chloride 20 mEq SR Tablet PO ONE ×2 (18:10→21:25)
--- NOTE | 2017-03-30 19:25 | PCM.HPSURG ---
Subjective Date of Service: Mar 30, 2017 Referring Provider: Admitting Physician: Linda Alexander DO Primary Care Physician: Bartolo Durán MD Attending Physician: Yuniel Ingram MD Chief Complaint Sepsis History of Present Illness Ms Pillai is an 86 F with sepsis from presumed urinary source. Her blood and urine cultures appear positive for E coli. She is coherent and appropriate during her interview on my arrival. She states she feels cold, but she no longer has rigors as she did earlier today. CT is concerning for LEFT moderate hydronephrosis with hydroureter down to the proximal ureter, appearing distal to the UPJ. - There is also stone present in the lower pole. Her Cr is in the 3s range, and she apparently has normal renal function prior to this event. She feels that she has had LUQ pain, but it's overall not severe or terribly strong. Note auto-imported into HPI from intake H+P: "The patient is 86-year-old female who presents to the emergency room secondary to altered mental status. The patient currently lives at home alone and her friends had not seen her in a while and stopped by to see her and found her down on the ground and the place was disheveled and they decided to call EMS. When asked the patient stated that the last thing she remembered was that she was on her way to the bathroom but then fell however she is unable to state how long she had been down or if she had hit her head. The patient is currently confused and is unable to answer all questions appropriately. A CT of the head was done as the patient was unable to remember if she had which was found to be negative for any acute intracranial processes. A chest x-ray was also performed in the ED which shows bibasilar pulmonary opacities however this may be consistent with atelectasis. The patient's white blood cell count was found to be significantly elevated at 27.4 with 4% bands, patient's sodium was 133, potassium 3.3, creatinine 4.64, troponin 0.026, procalcitonin 58, lactic acid 2.2, magnesium 1.5. The patient' s urine was positive for many bacteria and leukocyte esterase. Patient's urine was sent for culture and the patient is being admitted for acute encephalopathy most likely secondary to cystitis The patient has altered mental status and there were no family members at the side of the bed nor was anybody able to be reached by phone. The patient's history was taken via chart review, EMS, and pharmacy review." Allergy Allergies: Coded Allergies: Penicillins (Verified Allergy, Severe, 05/10/09) Social History Hx Alcohol Use: Yes (very occasionally) PMH HEENT History History of ENT Problems?: Yes HEENT History: Positive for:: Sinus Problem (occasional congestion or sinus infection) Denies:: Cataracts (bilateral removal) Other HEENT Pertinent History: macular hole repair on L Tonisectomy Cardiovascular History History of Heart Problems?: Yes Cardiovascular History: Positive for:: Heart Murmur Hypertension Other Cardiac History: valular disease Respiratory History of Respiratory Problem: No Neurological History Hx Neurologic Problems?: No Gastrointestinal History HX of GI Problems?: Yes Gastrointestinal History: Positive for:: Hiatal Hernia (small) Other GI Pertinent History: hysterectomy, anu Genitourinary History Hx of Gu Problems?: Yes Genitourinary History: Positive for: Urinary Tract Infection (child bearing years) Female/Male History Reproductive History Female: Denies: Currently ? Endometriosis Pelvic Inflammatory DX Problems with Breasts? Musculoskeletal History Hx Musculoskeletal Problems?: Yes Musculoskeletal History: Positive for:: Back Injury (DJD) Musculoskeletal Trauma (ankle dislocation with fracture) Psycho Social History Hx of Psycho/Social Problems?: No Other History Hx Any Other Health Problems?: Yes Other History: Positive for:: Thyroid Disease (hypothyroidism) Denies:: Cancer Hospitalization Diabetes: NoBedside Blood Glucose: 106 Social History Hx Alcohol Use: Yes (very occasionally) Smoking Status: Unknown if Ever Smoker H&P Surgical Exam Exam General: Alert, Cooperative, No Acute Distress Abdomen: Soft, Non-tender (she points to her LUQ as the area of pain previously. I cannot demonstrate it on exam today.) Extremities: Warm Neuro: Cranial Nerves 2-12 nl Assessment & Plan Assessment 86 F with sepsis (positive blood and urine cultures) and LEFT hydro VTE Prophylaxis: Sub-Q Heparin (Unfractionated) Plan: We reviewed her CT findings - [place], or swelling, of the LEFT kidney It's unclear the source of the swelling, but there is a narrowing in the proximal ureter - We reviewed ddx: stricture and much less likely, tumor We discussed options: - Do nothing: her clinical course has improved - LEFT ureteral stent We discussed the nature of LEFT ureteral stent in detail - Rationale for: she has narrowing of the ureter, which may be a source of her problems in terms of infection. Aberrant drainage of the kidney could predispose to urinary tract infection (as well as her stone). - Risks of: bleeding, pain, ureteral injury (though extremely low risk). - Benefits: this might hasten/facilitate her recovery. - This procedure takes just a few minutes of actual procedure time. Further evaluation of the ureter (via ureteroscopy) would be at a later date - We discussed that with sepsis, the urinary tract should be minimally manipulated, otherwise the risk is worsening infection - She could then have the stone treated after she has recuperated from this infection. She understands the stent is temporary and easily removed via cystoscopy She would like to consider her options and discuss this with her family I have drawn diagrams on her in-room board and written down the salient points of our conversation I have called the OR - If she would like to proceed, she would likely undergo LEFT stent placement around noon tomorrow. If she consents, her informed consent can be gained by nursing staff, and I will sign in preop holding tomorrow. Thank you for your kind consultation of this very pleasant woman. Resuscitation Status: CPR: Attempt Resuscitation Maura Gutiérrez MD Mar 30, 2017 19:25
[2017-03-30] MEDS ORDERED: 0.9% Sodium Chloride 250 ML ONE (19:45)
[2017-03-30] MEDS ORDERED: 0.9% Sodium Chloride 1,000 ML IV SCH (21:25)
[2017-03-30] MEDS ORDERED: DEXTROSE 5% IV SCH (21:25)
[2017-03-30] MEDS ORDERED: SODIUM ACETATE IV SCH (21:25)
[2017-03-31] VITALS (9 sets, daily range): BP systolic 114–153; BP diastolic 63–73; PULSE 76–89; RESP 18–20; O2SAT 93–95
[2017-03-31] MEDS ORDERED: Potassium Chloride 20 mEq SR Tablet PO ONE
[2017-03-31 07:18] LABS: BASOPHILS % (AUTO) 0.2 % (0-3); EOSINOPHILS % (AUTO) 1.9 % (0-5); MONOCYTES % (AUTO) 3.8 % (4-12); Mean Corpuscular Hemoglobin 28.8 pg (27.0-35.0); Mean Corpuscular Volume 82.5 fL (81-100); Platelet Count 164 bil/L (150-400)
[2017-03-31] MEDS: Heparin 5,000 Unit/mL Inj SUBQ SCH ×4 (08:30→21:39)
[2017-03-31] MEDS: Ertapenem Inj 500 MG in 0.9% Sodium Chloride 50 ML IV SCH (08:57)
[2017-03-31] MEDS: Vitamin B Complex/Vit C Tablet PO SCH ×2 (08:57→21:39)
--- NOTE | 2017-03-31 10:58 | DRSVH ---
PROCEDURE: X-RAY CHEST, TWO VIEWS ([id number]) INDICATIONS: Cough, eval PNA TECHNIQUE: 2 views of the chest were acquired. COMPARISON: [facility], CR, XR CHEST 1VW (PORTABLE), 03/29/2017, 11:30. FINDINGS: Surgical changes and devices: None. Lungs and pleura: No pneumothorax. Trace left pleural effusion. Moderate bibasilar airspace opacity. Mediastinum: Mediastinal contours are normal. Heart size is normal. Bones and chest wall: No suspicious bony abnormalities. Soft tissues appear unremarkable. IMPRESSION: Moderate bibasilar pneumonia. Follow up plain films of the chest are recommended to ensur e resolution, and to exclude underlying or central malignancy. Dictated by: Cyndi Weaver M.D. on 03/31/2017 at 10:56 Approved by: Cyndi Weaver M.D. on 03/31/2017 at 10:56
[2017-03-31] MEDS: Lactated Ringer's 1,000 ML IV SCH ×2 (11:44→20:10)
--- NOTE | 2017-03-31 13:32 | PCM.PNMED ---
Subjective Date of Service Mar 31, 2017 Subjective Pt does report some episodes or shaking/chills overnight. Has been afebrile. c/ o of Cough since admission. Exam Vital Signs Vital Sign - Last Date Time Temp Pulse Resp B/P Pulse Ox O2 Delivery O2 Flow Rate FiO2 03/31/17 12:45 36.3 85 20 135/73 95 Room Air Intake and Output 03/30/17 03/30/17 03/31/17 Cumulative From/Thru 15:00 23:00 07:00 03/29/17 10:52 - 03/31/17 06:32 Intake Total 1487 ml 6239 ml Output Total 675 ml 1325 ml Balance 812 ml 4914 ml Intake Oral 649 ml 1474 ml IV Total 838 ml 4765 ml Output Urine Total 675 ml 1325 ml # Bowel Movements 1 2 Exam Gen: AOX3, sitting in chair. No visible rigors today. HEENT: NCAT, PERRLA, EOMI, MMM, sclera anicteric. Neck: Soft, supple, no thyromegaly/JVD/LAD. Resp: Bibasilar crackles CV: S1 S2, RRR, No M/R/G Abd: Soft, (+) BS, NT/ND, no guarding/rebound/organomegaly. No Left CVAT appreciated. Ext: +PP, Trace LE Edema Skin: warm/dry/intact Neuro/Psych: Cooperative, appr mood/affect. CN II-XII grossly intact. No focal deficits. IVs and Medications Medications Reviewed: Medications were reviewed in detail Lab and Diagnostics Result Diagram: 03/31/17 0600 03/31/17 0600 Microbiology DANYELLE CULT URINE Final 03/31/17-0801 Organism 1 ESCHERICHIA COLI U COLONY COUNT/QUANTITY >100,000 CFU/ml 1. ESCHERICHIA COLI M.I.C Interp --------- ------ * AMOXICILLIN/CLAVULATE 4 S * AMPICILLIN 8 S * CEFAZOLIN (CEPHALOSPORIN) UTI 4 S * CEFEPIME <=1 S * CEFTRIAXONE <=1 S * CEFUROXIME SODIUM 16 I * CIPROFLOXACIN <=0.25 S * ERTAPENEM <=0.5 S * GENTAMICIN <=1 S * IMIPENEM <=1 S * LEVOFLOXACIN <=0.12 S * NITROFURANTOIN 32 S * TETRACYCLINE <=1 S * TOBRAMYCIN <=1 S * TRIMETHOPRIM/SULFAMETHOXAZOLE <=20 S Microbiology 03/29/17 Blood Culture - Preliminary, Resulted Positive Blood Culture, Ecoli. 03/30/17 C. difficile DNA Amplification - Final, Complete, neg. 03/29/17 Urine Culture - Final, Complete Escherichia Coli X-Rays, CTs and MRIs 03/30/17 CT KUB IMPRESSION: 1. Moderate to severe left-sided hydronephrosis the level of the proximal left ureter. No obstructing renal stone identified in left ureter. Findings compatible with a proximal left ureteral stricture which could be benign or malignant. 2. Nonobstructing stones in the inferior pole of the left kidney. 3. Cholelithiasis. 4. Consolidation in the lung bases bilaterally compatible with atelectasis, aspiration or pneumonia. 5. Small bilateral pleural effusions. 6. Colonic diverticulosis without evidence of diverticulitis. 7. Atherosclerosis including dense atherosclerotic calcifications in the visualized coronary vasculature. 03/30/17 US RENAL IMPRESSION: 1. Left-sided renal stones. 2. Moderate left-sided hydronephrosis. 3. No right-sided renal stones or hydronephrosis 03/31/17- X-RAY CHEST, 2 VIEWS- No pneumothorax. Trace left pleural effusion. Moderate bibasilar pneumonia. Follow up plain films of the chest are recommended to ensure resolution, and to exclude underlying or central malignancy. 03/29/17 X-RAY CHEST ONE VIEW, PORTABLE IMPRESSION: Bibasilar pulmonary opacities may represent atelectasis caused by shallow inspiration. Recommend confirmation with a PA and lateral chest radiograph performed when the patient is able to follow breathing instructions. 03/29/17 CT BRAIN 1. No acute intracranial abnormality. 2. Age-related atrophy and chronic white matter ischemic changes. Assessment & Plan 86-year-old female with past medical history of osteoporosis, hypertension, hypothyroidism, hyperlipidemia, possible CAD presents for a fall down for unknown time and sepsis and acute encephalopathy most likely secondary to cystitis Septicemia due to Ecoli Cystitis, present on admission, active - Criteria- temperature 35C, blood cell count 27.4, urine is likely source of infection. Urine culture- GNR. Blood cultures- +Ecoli. Also consider PNA as secondary infection. - 03/29 Blood/Urine Cx + E. Coli. Repeat Blood Cx in AM. - Rocephin started on 03/29, pt worsened overnight w/ severe rigors. Changed to Ertapenam on 03/30 500mg daily, renal dosing given worsening rigors. If GFR >30 consider give full 1g qd dose. Sensitivities show lowest DANYELLE Cipro and Ertapenam. Will keep Ertapenam for now given marked improvement since switching. Will d/w ID. Mod-Severe L hydronephrosis, acute, active. No overt L flank pain. Possibly due to proximal left ureteral stricture as stone is non-obstructing. Per 03/30- CT KUB- L hydronephrosis at level of the proximal left ureter. Nonobstructing stones in the inferior pole of the left kidney. - Was likely precipitant for infection. - Urology, Dr. Gutiérrez, following. May consider Stent on 04/01 pending AM labs. - Had family meeting on 03/31, family and patient would want stent if indicated. - Further evaluation and possible stone treatment would be as outpatient at future date. - Will make NPO past Mn. Acute kidney injury, acute, active- Multifactorial etiology. Likely primarily Post-Renal with finding of L Hydronephrosis. Possible component of ATN related to infectino. - Continue hydration as tolerated. - Hold losartan and HCTZ - Plan as above. - Monitor Scr. Bibasilar pulmonary opacities on CXR- poa, active- +Sx w/ Cough. May be atelectasis, aspiration or pneumonia. less likely PNA, given clear urinary source. Aspiration possible as did have AMS upon admission. - 03.31- repeat CXR notes moderate bibasilar pneumonia per. Small B/L pleural effusion noted CT Abd, whole lung not visualized in CT. -Watch I/O, titrate IVF accordingly to avoid Volume overload. Monitor oxygen requirement to indicate if pulmonary congestion developing. -Get Echo to assess for HF. Rhabdomyolysis most likely secondary to prolonged stay on the ground secondary to fall, present on admission, resolved. -CK 1996 on admit. Improved w/ IVF. Hypertension, present on admission, stable -Continue metoprolol by mouth twice a day -Hold losartan and HCTZ due to TRAY. -Hold amlodipine may restart when patient's blood pressure becomes elevate Hypomagnesemia, present on admission, active -Magnesium 1.5 on admit. Replete prn. Hypokalemia, present on admission, active -Replete prn. Elevated LFTs, present on admission, resolved -Most likely secondary to rhabdomyolysis and sepsis -Continue monitor Hypothyroidism, present on admission, stable -TSH- 7. -Continue levothyroxine 100 g by mouth daily Hyperlipidemia, present on admission, stable -Lipid panel- TG elevated 350. -Continue simvastatin 20 mg by mouth daily at bedtime Code Status: Full code Disposition: Due to the nature of the patient's current diagnosis anticipated stay is greater than 2 midnight. VTE Prophylaxis: Sub-Q Heparin (Unfractionated) Resuscitation Status: CPR: Attempt Resuscitation Yuniel Ingram MD Mar 31, 2017 13:32 Magnesium Level 1.5mg/dL (1.6-2.6) Total Bilirubin 0.5mg/dL (0.0-1.2) Aspartate Amino Transf (AST/SGOT) 84U/L (0-50) Alanine Aminotransferase (ALT/SGPT) 42U/L (0-32) Alkaline Phosphatase 196U/L (25-165) Total Creatine Kinase 1997U/L (21-215) Troponin T 0.026ug/L (0.0-0.011) 0.024ug/L (0.0-0.011) Total Protein 7.1g/dL (6.4-8.4) Albumin 2.9g/dL (3.4-5.0) Procalcitonin 58.00ng/mL (0.00-0.08) Urine Color Straw (YELLOW) Urine Appearance Hazy (CLEAR,HAZY) Urine pH 6.0 (5.0-8.0) Urine Specific [place] 1.015 (1.003-1.035) Urine Protein 100mg/dL (NEG,TRACE) Urine Glucose (UA) Negativemg/dL (NEGATIVE) Urine Ketones Negativemg/dL (NEGATIVE) Urine Occult Blood Large (NEGATIVE) Urine Nitrite Negative (NEGATIVE) Urine Bilirubin Negative (NEGATIVE) Urine Urobilinogen Normalmg/dL (NORMAL) Urine Leukocyte Esterase Large (NEGATIVE) Urine RBC 3-10/hpf (0-2) Urine WBC >50/hpf (0-5) Urine Epithelial Cells Occasional/hpf (NONE-MOD) Urine Crystals None seen (NONE SEEN) Urine Bacteria Many/hpf (NONE-FEW) Urine Hyaline Casts None/lpf (NONE) Urine Granular Casts None seen (NONE SEEN) Urine Waxy Casts None seen (NONE SEEN) Urine Red Blood Cell Casts None seen (NONE SEEN) Urine White Blood Cell Casts None seen (NONE SEEN) Urine Mucus None seen (None Seen) Urine Trichomonas None seen (NONE SEEN) Urine Yeast None (NONE SEEN) Urinalysis Comment None Urine Culture Reflexed Indicated Hold Purple Top Tube Received (Received) Hold Blue Top Tube Received (Received) Lactic Acid Level 2.2mmol/L (0.4-2.0) Hold [place] Top Tube Received (Received) Test 03/30/17 06:24 White Blood Count 16.9th/mm3 (3.8-10.1) Red Blood Count 3.69mil/mm3 (3.90-5.20) Hemoglobin 10.8g/dL (12.0-15.6) Hematocrit 30.6% (35.0-46.0) Mean Corpuscular Volume 82.9fL (81-100) Mean Corpuscular Hemoglobin 29.3pg (27.0-35.0) Mean Corpuscular Hemoglobin Concent 35.3% (32.0-37.0) Red Cell Distribution Width 13.8% (12.3-15.4) Platelet Count 190bil/L (150-400) Neutrophils (%) (Auto) 84.7% (40-74) Lymphocytes (%) (Auto) 8.0% (14-46) Monocytes (%) (Auto) 5.0% (4-12) Eosinophils (%) (Auto) 1.4% (0-5) Basophils (%) (Auto) 0.1% (0-3) Sodium Level 136mEq/L (134-144) Potassium Level 3.5mEq/L (3.5-5.2) Chloride Level 101mEq/L (97-108) Carbon Dioxide Level 13mmol/L (18-29) Blood Urea Nitrogen 69mg/dL (8-27) Creatinine 3.97mg/dL (0.57-1.00) Estimat Glomerular Filtration Rate 15mL/min (>59) Glucose Level 108mg/dL (60-99) Lactic Acid Level 0.9mmol/L (0.4-2.0) Calcium Level 8.6mg/dL (8.5-10.1) Magnesium Level 2.0mg/dL (1.6-2.6) Total Bilirubin 0.2mg/dL (0.0-1.2) Aspartate Amino Transf (AST/SGOT) 33U/L (0-50) Alanine Aminotransferase (ALT/SGPT) 31U/L (0-32) Alkaline Phosphatase 130U/L (25-165) Total Creatine Kinase 202U/L (21-215) Total Protein 4.7g/dL (6.4-8.4) Albumin 2.1g/dL (3.4-5.0) Triglycerides Level 350mg/dL (0-149) Cholesterol Level 138mg/dL (100-199) LDL Cholesterol, Calculated 64.000mg/dL (0-99) VLDL Cholesterol 70.000mg/dL HDL Cholesterol 4mg/dL (>39) Cholesterol/HDL Ratio 34.50 (0.0-4.4) Procalcitonin 40.37ng/mL (0.00-0.08) Thyroid Stimulating Hormone (TSH) 7.050uIU/mL (0.450-4.500) Microbiology 03/29/17 Blood Culture, Received Pending 03/29/17 Urine Culture - Preliminary, Resulted X-Rays, CTs and MRIs 03/30/17 CT KUB IMPRESSION: 1. Moderate to severe left-sided hydronephrosis the level of the proximal left ureter. No obstructing renal stone identified in left ureter. Findings compatible with a proximal left ureteral stricture which could be benign or malignant. 2. Nonobstructing stones in the inferior pole of the left kidney. 3. Cholelithiasis. 4. Consolidation in the lung bases bilaterally compatible with atelectasis, aspiration or pneumonia. 5. Small bilateral pleural effusions. 6. Colonic diverticulosis without evidence of diverticulitis. 7. Atherosclerosis including dense atherosclerotic calcifications in the visualized coronary vasculature. 03/30/17 US RENAL IMPRESSION: 1. Left-sided renal stones. 2. Moderate left-sided hydronephrosis. 3. No right-sided renal stones or hydronephrosis 03/31/17- X-RAY CHEST, 2 VIEWS- No pneumothorax. Trace left pleural effusion. Moderate bibasilar pneumonia. Follow up plain films of the chest are recommended to ensure resolution, and to exclude underlying or central malignancy. 03/29/17 X-RAY CHEST ONE VIEW, PORTABLE IMPRESSION: Bibasilar pulmonary opacities may represent atelectasis caused by shallow inspiration. Recommend confirmation with a PA and lateral chest radiograph performed when the patient is able to follow breathing instructions. 03/29/17 CT BRAIN 1. No acute intracranial abnormality. 2. Age-related atrophy and chronic white matter ischemic changes. Assessment & Plan 86-year-old female with past medical history of osteoporosis, hypertension, hypothyroidism, hyperlipidemia, possible CAD presents for a fall down for unknown time and sepsis and acute encephalopathy most likely secondary to cystitis Septicemia due to Ecoli Cystitis, present on admission, active - Criteria- temperature 35C, blood cell count 27.4, urine is likely source of infection. Urine culture- GNR. Blood cultures- +Ecoli. Also consider PNA as secondary infection. - 03/29 Blood Cx + E. Coli. Pending Sensitivities. - Rocephin started on 03/29, changed to Ertapenam on 03/30 500mg daily, renal dosing given worsening rigors. If GFR >30 consider give full 1g qd dose. - Repeat Blood Cx in AM. Mod-Severe L hydronephrosis, acute, active. No overt L flank pain. Possibly due to proximal left ureteral stricture as stone is non-obstructing. Per 03/30- CT KUB- L hydronephrosis at level of the proximal left ureter. Nonobstructing stones in the inferior pole of the left kidney. - Was likely precipitant for infection. - Urology, Dr. Gutiérrez, following. May consider Stent on 04/01 pending AM labs. - Had family meeting on 03/31, family and patient would want stent if indicated. - Further evaluation and possible stone treatment would be as outpatient at future date. - Will make NPO past Mn. Acute kidney injury, acute, active- Multifactorial etiology. Likely primarily Post-Renal with finding of L Hydronephrosis. Possible component of ATN related to infectino. - Continue hydration as tolerated. - Hold losartan and HCTZ - Plan as above. - Monitor Scr. Bibasilar pulmonary opacities on CXR- poa, active- +Sx w/ Cough. May be atelectasis, aspiration or pneumonia. less likely PNA, given clear urinary source. Aspiration possible as did have AMS upon admission. - 03.31- repeat CXR notes moderate bibasilar pneumonia per. Small B/L pleural effusion noted CT Abd, whole lung not visualized in CT. -Watch I/O, titrate IVF accordingly to avoid Volume overload. Monitor oxygen requirement to indicate if pulmonary congestion developing. -Get Echo to assess for HF. Rhabdomyolysis most likely secondary to prolonged stay on the ground secondary to fall, present on admission, resolved. -CK 1997 on admit. Improved w/ IVF. Hypertension, present on admission, stable -Continue metoprolol by mouth twice a day -Hold losartan and HCTZ due to TRAY. -Hold amlodipine may restart when patient's blood pressure becomes elevate Hypomagnesemia, present on admission, active -Magnesium 1.5 on admit. Replete prn. Hypokalemia, present on admission, active -Replete prn. Elevated LFTs, present on admission, resolved -Most likely secondary to rhabdomyolysis and sepsis -Continue monitor Hypothyroidism, present on admission, stable -TSH- 7. -Continue levothyroxine 100 g by mouth daily Hyperlipidemia, present on admission, stable -Lipid panel- TG elevated 350. -Continue simvastatin 20 mg by mouth daily at bedtime Code Status: Full code Disposition: Due to the nature of the patient's current diagnosis anticipated stay is greater than 2 midnight. VTE Prophylaxis: Sub-Q Heparin (Unfractionated) Resuscitation Status: CPR: Attempt Resuscitation Yuniel Ingram MD Mar 31, 2017 13:32
--- NOTE | 2017-03-31 13:41 | PCM.PNSURG ---
Subjective Date of Service: Mar 31, 2017 Date of Service: Mar 31, 2017 Visit Information: Reason for Visit Uti, Akl, Mild Rhabdomyolysis Surgery/Surgery Date Post-Op Day # Date of Admission: Mar 29, 2017 at 13:52 Hospital Day # Subjective: Ms Pillai is doing relatively well today. She denies pain. She had some chills last night, but she is comfortable now. She is joined by her son and two friends. Postop General: No Complaints Objective Vital Sign- Last 8 Hours Date Time Temp Pulse Resp B/P Pulse Ox O2 Delivery O2 Flow Rate FiO2 03/31/17 12:45 36.3 85 20 135/73 95 Room Air 03/31/17 10:36 76 03/31/17 09:10 36.7 89 20 114/63 93 Room Air 03/31/17 06:33 85 Intake and Output- Last 8 Hour 03/31/17 Cumulative From/Thru 06:59 03/29/17 10:52 - 03/31/17 06:32 Intake Total 6239 ml Output Total 1325 ml Balance 4914 ml Intake Oral 1474 ml IV Total 4765 ml Output Urine Total 1325 ml # Bowel Movements 2 General: Alert, Cooperative, No Acute Distress Abdomen: Soft, Non-tender Extremities: Warm (w/o edema) Neuro: Cranial Nerves 2-12 nl Catheters: Urethral 2 Way [place] (clear yellow urine) Result Diagram: 03/31/17 0600 03/31/17 0600 Assessment & Plan Impression Sepsis Problems: Plan Her clinical condition is improving - Her WBC is much improved - Her Cr demonstrates incremental improvement, presently 2.8 I had a detailed conversation with her and her son We reviewed again the condition at hand: - LEFT hydro - Sepsis via urinary source We discussed the nature of stent, why it's a consideration, and options Given her improvement without intervention, I do think it's reasonable to consider observation - I have spoken with Dr Ingram as well regarding this option After answering all of their questions and concerns, they have elected observation with consideration of stent should her Cr plateau tomorrow Dispo: - Recheck BUN/Cr tomorrow - Possible LEFT ureteral stent as labs and clinical condition warrant VTE Prophylaxis: Sub-Q Heparin (Unfractionated) Resuscitation Status: CPR: Attempt Resuscitation Maura Gutiérrez MD Mar 31, 2017 13:41
[2017-03-31] MEDS ORDERED: 0.9% Sodium Chloride 250 ML ONE (14:14)
[2017-04-01] VITALS (13 sets, daily range): BP systolic 109–153; BP diastolic 51–73; PULSE 64–81; RESP 17–24; O2SAT 86–97
[2017-04-01] MEDS: Lactated Ringer's 1,000 ML IV SCH ×3 (06:10→16:10)
[2017-04-01 07:01] LABS: BASOPHILS % (AUTO) 0.2 % (0-3); EOSINOPHILS % (AUTO) 3.7 % (0-5); MONOCYTES % (AUTO) 10.5 % (4-12); Mean Corpuscular Hemoglobin 29.3 pg (27.0-35.0); Mean Corpuscular Volume 83.8 fL (81-100); NEUTROPHILS % (AUTO) 69.5 % (40-74); Platelet Count 165 bil/L (150-400)
[2017-04-01] MEDS ORDERED: fentaNYL-PF 50 mCg/mL 2 mL Inj ONE (07:25)
[2017-04-01] MEDS ORDERED: Propofol 10,000 mCg/mL 20 mL Inj ONE (07:25)
[2017-04-01] MEDS: Vitamin B Complex/Vit C Tablet PO SCH ×2 (07:59→21:56)
[2017-04-01] MEDS: Heparin 5,000 Unit/mL Inj SUBQ SCH ×2 (07:59→17:15)
[2017-04-01] MEDS: Ertapenem Inj 500 MG in 0.9% Sodium Chloride 50 ML IV SCH (08:00)
[2017-04-01] MEDS ORDERED: Lactated Ringer's 1,000 ML IV ONE (09:48)
[2017-04-01] MEDS ORDERED: Ertapenem Inj 500 MG in 0.9% Sodium Chloride 50 ML IV ONE (10:00)
--- NOTE | 2017-04-01 10:07 | DRSVH ---
[facility] [address] [place] [address] Echocardiogram Report Name: BILLIE LAL CStudy Date: 03/15 Height: 62 in Hospital Exam Location: [facility] Weight: 158 lb Gender: Female BSA: 1.7 m2 : 1930 Age: 86 yrs BP: 130/63 mmHg Reason For Study: Shortness of Breath Ordering Physician: [facility] Performed By: Megan Geronimo Referring Physician: Jovani Bueno Interpretation Summary The left ventricle is normal in size. Left ventricular systolic function is normal. The ejection fraction is estimated to be 60-65%. There is hypokinesis along the basal and mid inferior wall and basal inferolateral wall. The right ventricle is normal in size and function. Pulmonary artery pressures cannot be estimated because of the lack of a measurable TR jet velocity. The left atrium is moderately dilated. The right atrium is borderline dilated. There is no significant valvular heart disease. The aortic root is normal size. Procedure: A two-dimensional transthoracic echocardiogram with color flow and Doppler was performed. The study quality was technically adequate. There is no prior echocardiogram noted for this patient. The patient was in normal sinus rhythm during the exam. The patient had frequent PACs during the exam. Left Ventricle: The left ventricle is normal in size. Left ventricular wall thickness is mildly increased. Proximal septal thickening is noted. Left ventricular systolic function is normal. The ejection fraction is estimated to be 60-65%. Right Ventricle: The right ventricle is normal in size and function. Atria: The left atrium is moderately dilated. The right atrium is borderline dilated. The interatrial septum is intact with no evidence for an atrial septal defect. Mitral Valve: The mitral valve leaflets appear mildly thickened, but open well. There is mild mitral annular calcification. There is trace mitral regurgitation. Aortic Valve: The aortic valve is moderately calcified. The aortic valve mean gradient is 17 mmHg. There is trace aortic regurgitation. Tricuspid Valve: The tricuspid valve is normal in structure and function. There is trace tricuspid regurgitation. Pulmonary artery pressures cannot be estimated because of the lack of a measurable TR jet velocity. Pulmonic Valve: The pulmonic valve is normal in structure and function. There is mild pulmonic regurgitation. There is no significant valvular heart disease. Great Vessels: The aortic root is normal size. The ascending aorta is normal in size. The IVC is of normal diameter and collapses greater than 50% with a sniff. This suggests a low right atrial pressure of 3 mm Hg. Pericardium/ Pleura There is no pericardial effusion. There is an anterior echo-free space consistent with a fat pad. There is a small left-sided pleural effusion. MMode/2D Measurements & Calculations LVIDd: 4.5 cm LVIDs: 3.6 cm LA A2 area: 22.9 cm FS: 19.9 % LA A4 area: 22.0 cm IVSd: 1.4 cm LA length (vol): 5.6 cm LVPWd: 0.99 cm LA vol: 77.1 ml LA vol index: 44.6 ml/m2 RA long axis: 4.3 cm LVOT diam: 2.1 cm RA area: 16.0 cm Ao root diam: 3.5 cm RA vol: 50.8 ml asc Aorta Diam: 3.1 cm RA : 29.4 ml/m2 LV urena. diameter/BSA (cm/m^2): 2.6 LV sys. diameter/BSA (cm/m^2): 2.1 TAPSE: 3.0 cm Doppler Measurements & Calculations Ao V2 max: 264.0 cm/sec MV E max yony: 69.3 cm/sec Ao max P.0 mmHg MV A max yony: 92.3 cm/sec Ao mean P.1 mmHg LVOT Max Yony: 117.7 cm/sec CLARE(I,D): 1.7 cm sev ratio: 0.47 MV E/A: 0.75 PA V2 max: 73.7 cm/sec PA mean P.1 mmHg MV dec time: 0.18 sec Ao V2 mean: 185.2 cm/sec Ao V2 VTI: 60.0 cm CLARE(V,D): 1.6 cm2 LV V1 max P.5 mmHg PA V2 mean: 49.0 cm/sec LV V1 VTI: 28.3 cm PA pr(Accel): 29.2 mmHg CLARE indexed to BSA (cm^2/m^2): 0.98 Reading Physician:ALEX
[2017-04-01] MEDS ORDERED: Ondansetron 2 mg/mL 2 mL Inj IVPUSH PRN (10:30)
[2017-04-01] MEDS ORDERED: hydrALAZINE 20 mg/mL Inj IVPUSH PRN (10:30)
[2017-04-01] MEDS ORDERED: Dexamethasone 4 mg/mL Inj IVPUSH PRN (10:30)
[2017-04-01] MEDS ORDERED: Labetalol 5 mg/mL 20 mL Inj IV PRN (10:30)
[2017-04-01] MEDS ORDERED: EPHEDrine Sulfate 50 mg/mL Inj IVPUSH PRN (10:30)
[2017-04-01] MEDS ORDERED: MetoCLOpramide 5 mg/mL 2 mL Inj IVPUSH PRN (10:30)
[2017-04-01] MEDS ORDERED: Atropine 0.4 mg/mL Inj IVPUSH PRN (10:30)
[2017-04-01] MEDS ORDERED: Phenylephrine 10,000 mCg/mL Inj IVPUSH PRN (10:30)
[2017-04-01] MEDS ORDERED: fentaNYL-PF 50 mCg/mL 2 mL Inj IVPUSH PRN (10:30)
[2017-04-01] MEDS ORDERED: HYDROmorphone 1 mg/mL Inj IVPUSH PRN (10:30)
[2017-04-01] MEDS ORDERED: Lactated Ringer's 1,000 ML IV SCH (10:30)
[2017-04-01] MEDS ORDERED: Lactated Ringer's 500 ML IV PRN (10:30)
--- NOTE | 2017-04-01 10:30 | PCM.HPANE ---
Patient Data Surgeon Admitting Provider:Linda Alexander DO Attending Provider:Yuniel Ingram MD Primary Care Physician:Bartolo Durán MD Other Provider: Reason for Visit Uti, Akl, Mild Rhabdomyolysis UTI, AKL, MILD RHABDOMYOLYSIS Ht/WT & BMI Height (Feet): 5 Height (Inches): 2.00 Weight (Kilograms): 72.700 Body Mass Index 27.79 Allergies Coded Allergies: Penicillins (Verified Allergy, Severe, 05/10/09) Past Anesthesia History Anesthesia History: Denies:: Anesthesia Reactions Diabetes History Hx Diabetes?: No Current Bedside Blood Glucose: 106 MRSA MRSA: No Medications Hypertension Medication: No Home Meds Incl Beta Haja: Yes Date Beta Haja Taken: Mar 25, 2017 Time Beta Haja Taken: 07:40 Reported Medications Nebivolol (Bystolic)2.5 Mg Tablet2.5 Mg PO QAM 03/29/17 Estrogens Conjugated (Premarin)0.625 Mg Tablet0.625 Mg PO DAILY 03/29/17 Simvastatin 20 Mg [id number] Mg PO HS 03/29/17 Aspirin 81 Mg [id number] Mg PO HS 03/29/17 Amlodipine 2.5 Mg Tablet2.5 Mg PO DAILY 03/29/17 Levothyroxine 100 Mcg [id number] Mcg PO DAILY For Thyroid Replacement 03/29/17 Metoprolol Tartrate 50 Mg [id number] Mg PO BID 03/29/17 Calcium Carbonate/Vitamin D3 (Calcium + Vitamin D Tablet)1 Each Tablet1 Each PO BID 03/29/17 Vit A/Vit C/Vit E/Zinc/Copper (Preservision Areds Softgel)1 Each Capsule1 Each PO BID 03/29/17 Losartan/HCTZ 100-25 mg (Hyzaar 100-25 mg)1 Each Tablet1 Tablet PO DAILY 03/29/17 Discontinued Reported Medications Alendronate 35 Mg [id number] Mg PO WEEKLY 03/29/17 History History of ENT Problems?: Yes HEENT History: Positive for:: Sinus Problem (occasional congestion or sinus infection) Denies:: Cataracts (bilateral removal) Denture Type: None Teeth Condition: Within Normal Limits Other HEENT Pertinent History: macular hole repair on L Tonisectomy Hx of Heart Problems?: Yes Cardiovascular History: Positive for:: Heart Murmur Hypertension Other Cardiac History: valular disease Hx of Respiratory Problem?: No Respiratory History: Positive for:: Pneumonia Hx Neurologic Problems?: No Hx of GI Problems?: Yes Other GI Pertinent History: hysterectomy, anu Hx of Problems?: Yes Genitourinary History: Positive for:: Urinary Tract Infection (child bearing years) Other History/Comment urosepsis, AMS on admission. Rhabdo on admission Female Hx: Denies:: Currently Endometriosis Pelvic Inflammatory Problems with Breasts? Hx Musculoskeletal Problems?: Yes Musculoskeletal History: Positive for:: Back Injury (DJD) Musculoskeletal Trauma (ankle dislocation with fracture) Hx of Psycho/Social Problems?: No Hx Surgeries?: Yes (tonsillectomy, eye surgery, back sry in 2001) Hx Any Other Health Problems?: Yes Other History: Positive for:: Thyroid Disease (hypothyroidism) Denies:: Cancer Hospitalization History Blood Transfusions: Positive for:: Accept Blood Products? Blood Transfuse Reaction (chills/shaking) Blood Transfusions Hx Diabetes: NoBedside Blood Glucose: 106 Hx Alcohol Use: Yes (very occasionally)Hx Substance Use: No Smoking Status: Unknown if Ever Smoker Have You Smoked inLast 12 mo: No Stop/Bang Treated for Sleep Apnea?: No Do You Have a CPAP Machine?: No S-Snoring: Do You Snore Loudly: No T-Tired: feel tired, fatigued: Yes O-Obsered: Observed not breath: No P-Blood Pressure: treated: Yes B- Body Mass Index > 35 kg/m2: No A- Age over 50: Yes N- Neck Large Circumference: No G- Gender Male: No SHANNON Total Score: 2 Risk Assessment Category Category 1A: Patient has history of documented sleep apnea, and HAS NOT received any narcotic, sedative or anesthesia administration during this stay. Category 1B: Patient has history of documented sleep apnea, and HAS received any narcotic , sedative or anesthesia administration during this stay Category 2: Patient has SUSPECTED Obstructive Sleep Apnea, and HAS received any narcotic , sedative or anesthesia administration during this stay. Category 3: Patient has SUSPECTED Obstructive Sleep Apnea and HAS NOT received narcotic, sedative or anesthesia administration during this stay. Category 4: Outpatient in Procedural Areas with known sleep apnea or who screen positive for High Risk via the STOP/BANG questionnaire. Exam Exam Vital Signs Vital Signs Date Time Temp Pulse Resp B/P Pulse Ox O2 Delivery O2 Flow Rate FiO2 04/01/17 08:06 37.1 81 17 153/73 96 Nasal Cannula 2.00 04/01/17 05:00 96 Nasal Cannula 2.00 04/01/17 04:12 94 Nasal Cannula 2.00 04/01/17 04:11 36.9 72 24 130/63 86 Room Air General Appearance: Alert, Oriented X3, Cooperative HEENT/AIRWAY: MP 2 Lungs: Clear to Auscultation Heart: Exam Unremarkable Meds/Labs/Diagnostics Admission Meds Current Medications Lactated Ringer's (Lr) 1,000 ml @ 100 mls/hr Q10H IV Last administered on 03/31t 11:44; Start 03/31/17 at 10:10 Bedside Blood Glucose: 106 Labs Test 03/29/17 11:20 03/29/17 11:24 03/29/17 11:57 03/30/17 06:24 Band Neutrophils % 4% (1-5) Prothrombin Time 11.2sec (8.1-12.5) Prothromb Time International Ratio 1.05ratio Urine Color Straw (YELLOW) Urine Appearance Hazy (CLEAR,HAZY) Urine pH 6.0 (5.0-8.0) Urine Specific [place] 1.015 (1.003-1.035) Urine Protein 100mg/dL (NEG,TRACE) Urine Glucose (UA) Negativemg/dL (NEGATIVE) Urine Ketones Negativemg/dL (NEGATIVE) Urine Occult Blood Large (NEGATIVE) Urine Nitrite Negative (NEGATIVE) Urine Bilirubin Negative (NEGATIVE) Urine Urobilinogen Normalmg/dL (NORMAL) Urine Leukocyte Esterase Large (NEGATIVE) Urine RBC 3-10/hpf (0-2) Urine WBC >50/hpf (0-5) Urine Epithelial Cells Occasional/hpf (NONE-MOD) Urine Crystals None seen (NONE SEEN) Urine Bacteria Many/hpf (NONE-FEW) Urine Hyaline Casts None/lpf (NONE) Urine Granular Casts None seen (NONE SEEN) Urine Waxy Casts None seen (NONE SEEN) Urine Red Blood Cell Casts None seen (NONE SEEN) Urine White Blood Cell Casts None seen (NONE SEEN) Urine Mucus None seen (None Seen) Urine Trichomonas None seen (NONE SEEN) Urine Yeast None (NONE SEEN) Urinalysis Comment None Urine Culture Reflexed Indicated Hold Purple Top Tube Received (Received) Hold Blue Top Tube Received (Received) Hold Pringle Top Tube Received (Received) Lactic Acid Level 0.9mmol/L (0.4-2.0) Magnesium Level 2.0mg/dL (1.6-2.6) Total Creatine Kinase 202U/L (21-215) Triglycerides Level 350mg/dL (0-149) Cholesterol Level 138mg/dL (100-199) LDL Cholesterol, Calculated 64.000mg/dL (0-99) VLDL Cholesterol 70.000mg/dL HDL Cholesterol 4mg/dL (>39) Cholesterol/HDL Ratio 34.50 (0.0-4.4) Thyroid Stimulating Hormone (TSH) 7.050uIU/mL (0.450-4.500) Test 03/30/17 12:00 03/30/17 13:00 03/30/17 17:01 03/31/17 06:00 Urine Random Creatinine 144mg/dL (15-278) Urine Random Sodium 10mEq/L Urine Random Potassium 61.8mEq/L Urine Random Chloride 10mEq/L Total Bilirubin 0.2mg/dL (0.0-1.2) Aspartate Amino Transf (AST/SGOT) 29U/L (0-50) Alanine Aminotransferase (ALT/SGPT) 32U/L (0-32) Alkaline Phosphatase 132U/L (25-165) Total Protein 5.0g/dL (6.4-8.4) Albumin 2.3g/dL (3.4-5.0) Troponin T 0.013ug/L (0.0-0.011) Pro-B-Type Natriuretic Peptide 57527vf/mL (0-738) Test 04/01/17 05:30 White Blood Count 14.0th/mm3 (3.8-10.1) Red Blood Count 3.21mil/mm3 (3.90-5.20) Hemoglobin 9.4g/dL (12.0-15.6) Hematocrit 26.9% (35.0-46.0) Mean Corpuscular Volume 83.8fL (81-100) Mean Corpuscular Hemoglobin 29.3pg (27.0-35.0) Mean Corpuscular Hemoglobin Concent 34.9% (32.0-37.0) Red Cell Distribution Width 14.0% (12.3-15.4) Platelet Count 165bil/L (150-400) Neutrophils (%) (Auto) 69.5% (40-74) Lymphocytes (%) (Auto) 12.2% (14-46) Monocytes (%) (Auto) 10.5% (4-12) Eosinophils (%) (Auto) 3.7% (0-5) Basophils (%) (Auto) 0.2% (0-3) Sodium Level 133mEq/L (134-144) Potassium Level 3.6mEq/L (3.5-5.2) Chloride Level 98mEq/L (97-108) Carbon Dioxide Level 21mmol/L (18-29) Blood Urea Nitrogen 46mg/dL (8-27) Creatinine 1.97mg/dL (0.57-1.00) Estimat Glomerular Filtration Rate 34mL/min (>59) Glucose Level 110mg/dL (60-99) Calcium Level 7.6mg/dL (8.5-10.1) Procalcitonin 9.30ng/mL (0.00-0.08) Plan Impression Patient chart reviewed, patient interviewed and anesthestic plan with risks, benefits, and alternatives discussed, and informed consent obtained. ASA Physical Status: ASA3 Severe Disease Anesthetic Plan: MAC Bene/Risks/Altern/Consents: Yes HP Complete Prior to Induction: Yes Meek Armas DO Apr 01, 2017 09:49
--- NOTE | 2017-04-01 10:39 | PCM.PNMED ---
Subjective Date of Service Apr 01, 2017 Subjective Pt desat to 86 overnight, placed on 2L oxygen. Denies SOB. No fever/chills. Exam Vital Signs Vital Sign - Last Date Time Temp Pulse Resp B/P Pulse Ox O2 Delivery O2 Flow Rate FiO2 04/01/17 10:22 80 04/01/17 08:06 37.1 17 153/73 96 Nasal Cannula 2.00 Intake and Output 03/31/17 03/31/17 04/01/17 Cumulative From/Thru 15:00 23:00 07:00 03/29/17 10:52 - 04/01/17 06:56 Intake Total 200 ml 1286 ml 293 ml 8018 ml Output Total 800 ml 850 ml 750 ml 3725 ml Balance -600 ml 436 ml -457 ml 4293 ml Intake Oral 200 ml 1036 ml 200 ml 2910 ml IV Total 250 ml 93 ml 5108 ml Output Urine Total 800 ml 850 ml 750 ml 3725 ml # Bowel Movements 0 1 0 3 Exam Gen: AOX3, sitting in chair. No visible rigors today. HEENT: NCAT, PERRLA, EOMI, MMM, sclera anicteric. Neck: Soft, supple, no thyromegaly/JVD/LAD. Resp: Bibasilar crackles CV: S1 S2, RRR, No M/R/G Abd: Soft, (+) BS, NT/ND, no guarding/rebound/organomegaly. No Left CVAT appreciated. Ext: +PP, +1 LE Edema Skin: warm/dry/intact Neuro/Psych: Cooperative, appr mood/affect. CN II-XII grossly intact. No focal deficits. IVs and Medications Medications Reviewed: Medications were reviewed in detail Lab and Diagnostics Result Diagram: 04/01/1752904/01/17529 Microbiology DANYELLE CULT URINE Final 03/31/17-0801 Organism 1 ESCHERICHIA COLI U COLONY COUNT/QUANTITY >100,000 CFU/ml 1. ESCHERICHIA COLI M.I.C Interp --------- ------ * AMOXICILLIN/CLAVULATE 4 S * AMPICILLIN 8 S * CEFAZOLIN (CEPHALOSPORIN) UTI 4 S * CEFEPIME <=1 S * CEFTRIAXONE <=1 S * CEFUROXIME SODIUM 16 I * CIPROFLOXACIN <=0.25 S * ERTAPENEM <=0.5 S * GENTAMICIN <=1 S * IMIPENEM <=1 S * LEVOFLOXACIN <=0.12 S * NITROFURANTOIN 32 S * TETRACYCLINE <=1 S * TOBRAMYCIN <=1 S * TRIMETHOPRIM/SULFAMETHOXAZOLE <=20 S Microbiology 03/29/17 Blood Culture - Preliminary, Resulted Positive Blood Culture, Ecoli. 03/30/17 C. difficile DNA Amplification - Final, Complete, neg. 03/29/17 Urine Culture - Final, Complete Escherichia Coli X-Rays, CTs and MRIs 03/30/17 CT KUB IMPRESSION: 1. Moderate to severe left-sided hydronephrosis the level of the proximal left ureter. No obstructing renal stone identified in left ureter. Findings compatible with a proximal left ureteral stricture which could be benign or malignant. 2. Nonobstructing stones in the inferior pole of the left kidney. 3. Cholelithiasis. 4. Consolidation in the lung bases bilaterally compatible with atelectasis, aspiration or pneumonia. 5. Small bilateral pleural effusions. 6. Colonic diverticulosis without evidence of diverticulitis. 7. Atherosclerosis including dense atherosclerotic calcifications in the visualized coronary vasculature. 03/30/17 US RENAL IMPRESSION: 1. Left-sided renal stones. 2. Moderate left-sided hydronephrosis. 3. No right-sided renal stones or hydronephrosis 03/31/17- X-RAY CHEST, 2 VIEWS- No pneumothorax. Trace left pleural effusion. Moderate bibasilar pneumonia. Follow up plain films of the chest are recommended to ensure resolution, and to exclude underlying or central malignancy. 03/29/17 X-RAY CHEST ONE VIEW, PORTABLE IMPRESSION: Bibasilar pulmonary opacities may represent atelectasis caused by shallow inspiration. Recommend confirmation with a PA and lateral chest radiograph performed when the patient is able to follow breathing instructions. 03/29/17 CT BRAIN 1. No acute intracranial abnormality. 2. Age-related atrophy and chronic white matter ischemic changes. Cardiac Echo Impressions 03/31- Echo- The left ventricle is normal in size. Left ventricular systolic function is normal. The ejection fraction is estimated to be 60-65%. There is hypokinesis along the basal and mid inferior wall and basal inferolateral wall. The right ventricle is normal in size and function. Pulmonary artery pressures cannot be estimated because of the lack of a measurable TR jet velocity. The left atrium is moderately dilated. The right atrium is borderline dilated. There is no significant valvular heart disease. The aortic root is normal size. Assessment & Plan 86-year-old female with past medical history of osteoporosis, hypertension, hypothyroidism, hyperlipidemia, possible CAD presents for a fall down for unknown time and sepsis and acute encephalopathy most likely secondary to Ecoli Cystitis. CT Finding of L hydronephrosis s/p L Ureteral Stent on 04/01 by Urology. Septicemia due to Ecoli Cystitis, present on admission, active - Criteria- temperature 35C, blood cell count 27.4, urine is likely source of infection. Urine culture- GNR. Blood cultures- +Ecoli. Also consider PNA as secondary infection. - 03/29 Blood/Urine Cx + E. Coli. Repeat Blood Cx in AM. - Rocephin started on 03/29, pt worsened overnight w/ severe rigors so changed to Ertapenam, transitioned to PO Levofloxacin. - ID consulted, Dr. Ahn recs- Levofloxacin upon discharge. 10 days total. Mod-Severe L hydronephrosis, acute, active. No overt L flank pain. Possibly due to proximal left ureteral stricture as stone is non-obstructing. Per 03/30- CT KUB- L hydronephrosis at level of the proximal left ureter. Nonobstructing stones in the inferior pole of the left kidney. - Was likely precipitant for infection. - Had family meeting on 03/31, family and patient would want stent if indicated. Confirmed on 04/01 when obtaining consent. - Urology, Dr. Gutiérrez, following. placed L Ureteral Stent on 04/01. - Further evaluation and possible stone treatment would be as outpatient at future date. - F/u Urology recs. Acute kidney injury, acute, improving- Multifactorial etiology. Initial Scr 4.64. Likely primarily Post-Renal given of L Hydronephrosis. Possible component of ATN related to infection. - Gentle IVF, held 03/31 to avoid Volume Overload. - Hold losartan and HCTZ - Plan as above. - Monitor Scr. Bibasilar pulmonary opacities on CXR- poa, active- +Sx w/ Cough. May be atelectasis, aspiration or pneumonia. less likely PNA, given clear urinary source. Aspiration possible as did have AMS upon admission. - 03.31- repeat CXR notes moderate bibasilar opacities. Small B/L pleural effusion noted. BNP elevated 13,490 after IVF. -Watch I/O, titrate VF accordingly to avoid Volume overload. Monitor oxygen requirement to indicate if pulmonary congestion developing. - 03/31- Echo- EF 60-65%. hypokinesis along the basal and mid inferior wall and basal inferolateral wall. LA Mod dilated. - Repeat CXR in AM. Indeterminate Elevated Troponins- poa, active Likely secondary to demand. Pt denies Chest pain, Initial Trop 0.026, peak. Abn Echo is concern. EKG- incomplete LBBB. No JUAN. 03/31- Echo- EF 60-65%. hypokinesis along the basal and mid inferior wall and basal inferolateral wall. Per pt, this is not a new finding as has been told this before. - As outpatient consider Stress test if develop angina or anginal equivalent. - Follow up with PCP. Rhabdomyolysis most likely secondary to prolonged stay on the ground secondary to fall, present on admission, resolved. -CK 1997 on admit. Improved w/ IVF. Hypertension, present on admission, stable -Continue metoprolol by mouth twice a day -Hold losartan and HCTZ due to TRAY. -Hold amlodipine may restart when patient's blood pressure becomes elevated. Hypomagnesemia, present on admission, resolved. -Magnesium. Replete prn. Hypokalemia, present on admission, active -Replete prn. Elevated LFTs, present on admission, resolved -Most likely secondary to rhabdomyolysis and sepsis -Continue monitor Hypothyroidism, present on admission, stable -TSH- 7. -Continue levothyroxine 100 g by mouth daily Hyperlipidemia, present on admission, stable -Lipid panel- TG elevated 350. -Continue simvastatin 20 mg by mouth daily at bedtime Code Status: Full code Disposition: Anticipate discharge in 1-2 days on PO Levofloxacin. Will need to follow up with Urology as above. Pain Evaluation: Adequate Pain Control VTE Prophylaxis: Sub-Q Heparin (Unfractionated) Resuscitation Status: CPR: Attempt Resuscitation Yuniel Ingram MD Apr 01, 2017 10:39 Pain Evaluation: Adequate Pain Control VTE Prophylaxis: Sub-Q Heparin (Unfractionated) Resuscitation Status: CPR: Attempt Resuscitation Yuniel Ingram MD Apr 01, 2017 10:39
--- NOTE | 2017-04-01 11:24 | PCM.ANEP1 ---
Post Anesthesia PACU Phase 1 Assessment Vital Signs Vital Signs Date Time Temp Pulse Resp B/P Pulse Ox O2 Delivery O2 Flow Rate FiO2 04/01/17 11:20 64 22 115/56 97 Nasal Cannula 2 04/01/17 11:15 67 22 115/51 93 Nasal Cannula 2 04/01/17 11:05 36.2 68 18 109/57 96 Simple Mask 10 04/01/17 10:22 80 04/01/17 08:06 37.1 81 17 153/73 96 Nasal Cannula 2.00 04/01/17 05:00 96 Nasal Cannula 2.00 04/01/17 04:12 94 Nasal Cannula 2.00 04/01/17 04:11 36.9 72 24 130/63 86 Room Air Anesthetic Administered: GA, MAC Level of Alertness: Awake, talking HOLLIDAY's with Equal Strength: Yes Pain: Yes Pain Scale Score: 3 Nausea or Vomiting: No CV Function & Hydration Stable: Yes Airway Device: Oxygen Delivery: Simple Mask Lungs: Clear to Auscultation PACU Phase 2 Assessment Complications: Yes Follow up Care: N/A Patient Instructions Provided: N/A Meek Armas DO Apr 01, 2017 11:24
--- NOTE | 2017-04-01 13:24 | DRSVH ---
PROCEDURE: X-RAY RETROGRADE UROGRAPHY INDICATIONS: C-ARM ASSISTED LEFT STENT PLACEMENT TECHNIQUE: 3 intra-operative images acquired by the Urology service. COMPARISON: [facility], CT, CT KUB, 03/30/2017, 17:34. FINDINGS: Examination is limited to the 3 submitted images. Within these limits, visualized portion s of the mid to distal left ureter demonstrate normal caliber and there is possibly a small filling d efect visualized at the level of the ureter just superior to the left SI joint or the ureter is tortu ous. Proximal ureter is not opacified. Ureteral stent was placed. Of note, fixation hardware withi n the lower lumbar spine. IMPRESSION: 1. Limited exam demonstrating possible intraluminal filling defect visualized within the mid to dista l left ureter where the ureter appears tortuous. Correlate with real time examination. 2. Ureteral stent placement. Dictated by: Medhat MESSER Interpreted: Prosper Dillon MD on 04/01/2017 at 11:25 Approved by: Prosper Dillon M.D. on 04/01/2017 at 13:22
[2017-04-01] MEDS: levoFLOXacin 500 mg Tablet PO SCH (15:36)
--- NOTE | 2017-04-01 17:05 | CONS ---
[address] [address] CONSULTATION REPORT PATIENT: BILLIE LAL : 1930 MR#: [id number] ADMIT: 03/29/2017 JOB ID: [id number] DATE OF SERVICE: 04/01/[address] Ingram for this timely consult. REASON FOR CONSULTATION: Complicated urinary tract infection with E. coli bacteremia. HISTORY OF PRESENT ILLNESS: The patient is an 86-year-old female who lives by herself in the [place] area. She was in her usual state of health, she says, until about two weeks ago when she started to feel ill but in a very unclear way but more acutely about 4-5 days ago she started to get much more sick with chills, weakness, cough which was typically nonproductive and confusion and left flank pain. She reports that she created significant disturbance in her house because of her ongoing encephalopathy before she was brought to the hospital and admitted on March 29. She was found by friends actually who found her basically on the floor with evidence of some confusion prior to the time they found her. The patient was clearly unable to answer questions and was unclear what was going on when she was admitted. 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 Subsequently, it was also noted that she had pyuria and CT evidence of a complicated left renal infection secondary to stone disease. The patient was then taken just today to the operating room for stent placement in her left ureter which was successful. Over the course of her three days here in the hospital, the patient's mental status has improved dramatically and she has returned largely to her normal state of health, though she feels very weak. She notes that her chills have resolved as has her nausea and her history of vomiting on a couple different occasions. She still has minimal left flank pain and still has some degree of cough which is productive of some clear sputum and occasionally some yellowish sputum. PAST MEDICAL HISTORY: 1. Hypertension. 2. Hypothyroidism. 3. Hyperlipidemia. 4. PENICILLIN ALLERGY. SOCIAL HISTORY: The patient was originally from [place] but moved to the [facility] and more recently moved to [place]. She has been twice. Both of her husbands are . She is a nonsmoker, nondrinker. FAMILY HISTORY: Negative for TB in first-degree relatives. REVIEW OF SYSTEMS: At this point, she has no significant headache, visual complaint or sore throat. She still has a cough but she is not short of breath. That cough occasionally produces some yellowish sputum. She did have nausea and a couple episodes of vomiting before she came in. That seems better. She has noted some loose stools. She did not have dysuria interestingly, though she did have left flank pain. No significant swelling of the extremities. Remainder of the review of systems is negative. PHYSICAL EXAMINATION: Reveals an afebrile woman. Temperature 36.6. She was hypothermic when she arrived, 35.0, and has now warmed back to normal. Pulse is in the 60s. Respiratory in the teens. Blood pressure 146/71, saturating well on room air. She is awake, pleasant, conversant, oriented. No evidence of head trauma. No temporal wasting. No conjunctivitis. No thrush or hairy leukoplakia. Neck is supple. Lungs: Decreased breath sounds surprisingly bilaterally with a few crackles at both bases. Cardiac tones: Regular rate and rhythm with a significant 2-3/6 systolic murmur. Abdomen soft, nontender. Minimal if any residual left flank tenderness. No suprapubic fullness. No Cleary catheter is present. Extremities without evidence of synovitis, cellulitis, or edema. Peripheral pulses are intact. The patient is neurologically intact. White count 28,000 when she came in, now down to 14,000. Platelet count 165. Creatinine is down to 1.97. ProBNP is 13,000. Procalcitonin is 9.3 at this point and was previously as high as 58. Urinalysis had greater than 50 white cells on admission. Micro: Blood cultures grew E. Coli. That E. Coli is pansusceptible including very low MICs to Cipro as well as Bactrim. IMAGING: Includes a CT scan which we reviewed. The CT scan showed a moderate to severe left-sided hydronephrosis. No obstructing stone was seen but there was a proximal left ureteral stricture. There were also some nonobstructing stones in the inferior part of the left kidney as well as cholelithiasis and infiltrates in the bases of the lungs, compatible with atelectasis, aspiration or pneumonia. We also looked at the chest x-ray which showed moderate bibasilar infiltrates. IMPRESSION: This woman presented with encephalopathy secondary to bacteremic Escherichia coli complicated urinary tract infection. She has improved dramatically after two days of ceftriaxone. Patient is now in her fourth day of therapy, initially with ertapenem that was subsequently switched to ceftriaxone. She is, as noted, much improved. As to whether or not she has a coincident pulmonary infection I am inclined to suspect she does not, but it is difficult to exclude the possibility given her history of cough which is sometimes productive and the chest x-ray appearance. More likely I suspect what we are seeing on chest x-ray and CT is fluid overload and/or atelectasis but I do think it is reasonable to perhaps provide some additional pneumonia coverage. This can be easily accomplished by using Levaquin as a drug for both urinary tract treatment, as well as to cover possible pulmonary infection, though I think it is much less likely. RECOMMENDATIONS: 1. We can go ahead and discontinue the ertapenem she is now receiving. 2. We can start the patient on levofloxacin 500 mg once a day with a plan to continue for approximately 10 days through April 11. This dose may need to be adjusted by the urologist depending on how long they plan to leave the stents in place and so forth. 3. Will continue to follow this patient closely with you. Thank you very much for this timely consult.
--- NOTE | 2017-04-01 22:45 | OP ---
[address] [address] OPERATIVE REPORT PATIENT: BILLIE LAL : 1930 MR#: [id number] ADMIT: 03/29/2017 JOB ID: [id number] DATE OF SURGERY: 03/29/2017 PREOPERATIVE DIAGNOSIS(ES): Left hydronephrosis. POSTOPERATIVE DIAGNOSIS(ES): Left hydronephrosis. PROCEDURE PERFORMED: 1. Cystoscopy and left retrograde pyelogram. 2. Left ureteral stent placement. SURGEON: Maura Gutiérrez MD. ALUMNI SECRETARY: None. FINDINGS: 1. Tortuous left proximal ureter. 2. Left hydronephrosis. ANESTHESIA: Monitored anesthesia care. ESTIMATED BLOOD LOSS: None. DRAINS: A 6 x 22 left double-J ureteral stent. SPECIMENS: None. COMPLICATIONS: None. CONDITION: Stable. INDICATION FOR PROCEDURE: The patient is an 86-year-old woman admitted with presumed sepsis. Urine and blood cultures appear positive with the same organism. She was found to have on CT scan left hydronephrosis with narrowing of the left proximal ureter. She now presents for the aforementioned procedure. DESCRIPTION OF PROCEDURE: After informed consent was obtained, patient was taken to the operating room. A time-out was performed identifying correct patient, surgical site and procedure. Monitored anesthesia care was smoothly induced. She was placed in the lithotomy position and all pressure points were identified and appropriately padded. The genitals were then prepped and draped in usual sterile fashion. A 22-Vietnamese rigid cystoscope was applied to the patient's urethra and advanced into the bladder. The bladder was drained. The bladder appeared normal. The left ureteral orifice was cannulated with 5-Vietnamese open-ended Pollack catheter. Retrograde pyelogram was performed. The findings were aforementioned. A Sensor wire was then advanced into the renal pelvis through the Pollack, which was then backloaded. A 6 x 22 double-J ureteral stent was loaded over it and advanced into the renal pelvis as seen under fluoroscopy. The wire was removed with a nice coil in the patient's bladder seen under direct vision. The bladder was then drained. Anesthesia was then reversed and the patient was then taken to PACU in good and stable condition. [facility]
[2017-04-02 00:44] VITALS: BP 142/82; PULSE 78; RESP 18; O2SAT 96
[2017-04-02] MEDS: Heparin 5,000 Unit/mL Inj SUBQ SCH ×4 (01:12→23:44)
[2017-04-02] MEDS ORDERED: Dextromethorphan Polistirix 6 mg/mL 90 mL Suspension PO ONE (01:50)
[2017-04-02] MEDS: Lactated Ringer's 1,000 ML IV SCH ×2 (02:10→13:50)
[2017-04-02] MEDS: Benzocaine-Menthol Lozenge 2/Pkg PO PRN ×5 (04:46→20:26)
[2017-04-02 05:27] VITALS: BP 149/71; PULSE 74; RESP 18; O2SAT 97
[2017-04-02] MEDS: levoFLOXacin 500 mg Tablet PO SCH (07:50)
[2017-04-02] MEDS: Vitamin B Complex/Vit C Tablet PO SCH ×2 (07:50→20:25)
[2017-04-02] MEDS ORDERED: NS IV SCH ×2 (08:30)
[2017-04-02] MEDS ORDERED: ERTAPENEM IV SCH ×2 (08:30)
[2017-04-02 09:50] VITALS: BP 158/71; PULSE 71; RESP 18; O2SAT 98
--- NOTE | 2017-04-02 10:25 | DRSVH ---
PROCEDURE: X-RAY CHEST ONE VIEW, PORTABLE ([id number]) INDICATIONS: SHORT OF BREATH TECHNIQUE: One view of the chest was acquired. COMPARISON: [facility], CR, XR CHEST 1VW (PORTABLE), 03/29/2017, 11:30. [facility], CR, XR CHEST 2VW, 03/31/2017, 10:19. FINDINGS: Surgical changes and devices: None. Lungs and pleura: Mild, streaky opacities are seen at the lung bases. There is mild blunting of the left costophrenic angle seen. Mediastinum: The cardiac contours are within normal limits. The aorta demonstrates calcification and tortuosity. Bones and chest wall: Age-appropriate bony degenerative changes are seen. No suspicious bony lesion s. Overlying soft tissues appear unremarkable. IMPRESSION: Atelectasis versus mild infiltrates seen at the lung bases. Small left-sided pleural effusion. Dictated by: Prosper Dillon M.D. on 04/02/2017 at 10:21 Approved by: Prosper Dillon M.D. on 04/02/2017 at 10:23
--- NOTE | 2017-04-02 11:28 | PROG NOTE ---
[address] [address] PROGRESS NOTE PATIENT: BILLIE LAL : 1930 MR#: [id number] ADMIT: 03/29/2017 JOB ID: [id number] DATE: 04/02/2017 INFECTIOUS DISEASE FOLLOW UP NOTE: REASON FOR FOLLOWUP: Complicated bacteremic E coli urinary tract infection with stent placement as well as possible pneumonia and persistent cough. INTERVAL HISTORY: Overnight, the patient says she had a rough night because of frequent loose stools. She notes that the loose stools actually began about two weeks ago before any of these other current problems and have not improved. She notes they are sticky and dark in color. In addition to the frequent unusual appearing loose stools, she notes that she has a persistent dry cough without significant shortness of breath. She also has left flank pain at the site of her recent stent which was placed because of her partially obstructed ureter and complicated urinary tract infection with bacteremia. PHYSICAL EXAMINATION: Reveals an afebrile woman with an occasional dry cough. Temperature 36.6, pulse 71, respiratory rate 18, blood pressure 158/71. She is in no acute distress. Examination of the oral cavity is unremarkable. The lungs are relatively clear, a few crackles at the bases. Cardiac tones without new murmur. Abdomen benign except for some left flank pain which is the site where a stent was placed. She has no skin rash. No abdominal pain. LABORATORIES: Include white count 14,000, he now has a normal difficile, so even though the white count has gone up a little bit total, the differential is now normal. Creatinine 1.54 which is rapidly improving. Recall when she came in, her creatinine was 4.6. Procalcitonin yesterday 9.3, not repeated yet today. Micro studies include blood and urine growing the E coli which turned out to be cuadra susceptible. IMAGING: New chest x-ray was reviewed. It shows atelectasis versus minimal infiltrates at the lung bases and a small left-sided pleural effusion. IMPRESSION: This patient seems to be recovering in that she is afebrile. Her white count, left shift has resolved and her overall clinical status seems stable. Her primary problem, of course, is the bacteremic ESBL complicated urinary tract infection now status post stent on the left side. Secondary issues include the cough which I suspected it does not represent bacterial pneumonia but which we are covering with levofloxacin as it would provide coverage for the E. coli as well as the pulmonary process. Another issue here is the diarrhea which has been going on apparently since before all this started. A recent C difficile study was negative and I am not certain that the diarrhea has anything to do with these current other problems, but it will bear close watching and potentially workup after she is discharged. RECOMMENDATIONS: 1. Will continue with levo through April 11. The dose will be 500 today as her renal function continues to improve. 2. Will continue to follow this patient with you. 3. No additional stool studies are necessary but if the diarrhea persists she would at a minimum require an outpatient workup.
[2017-04-02 20:16] VITALS: BP 145/73; PULSE 82; RESP 18; O2SAT 97
--- NOTE | 2017-04-03 00:13 | PCM.PNMED ---
Subjective Date of Service Apr 02, 2017 Subjective Patient states she has been feeling weak but feels better than she did at admission. Patient's and family questions were answered. She denies dyspnea and cough. Exam Vital Signs Vital Sign - Last Date Time Temp Pulse Resp B/P Pulse Ox O2 Delivery O2 Flow Rate FiO2 04/02/17 05:27 36.2 74 18 149/71 97 Room Air 04/01/17 11:20 2 Intake and Output 04/01/17 04/01/17 04/02/17 Cumulative From/Thru 14:59 22:59 06:59 03/29/17 10:52 - 04/02/17 05:31 Intake Total 200 ml 1781 ml 200 ml 23254 ml Output Total 800 ml 425 ml 350 ml 5300 ml Balance -600 ml 1356 ml -150 ml 4899 ml Intake Oral 1550 ml 200 ml 4660 ml IV Total 200 ml 231 ml 5539 ml Output Urine Total 800 ml 425 ml 350 ml 5300 ml # Bowel Movements 2 1 6 Exam General: NAD HEENT: NCAT Heart: RRR, no s3/s4 Lungs: CTA no crackles or wheezes Abd: Soft, non distended Ext: 1+ pitting edema L>R NEuro: No focal deficits PSych: Neg for anxiety IVs and Medications IV Fluids None Medications Reviewed: Medications were reviewed in detail Lab and Diagnostics Result Diagram: 04/01/1752904/01/17529 Microbiology DANYELLE CULT URINE Final 03/31/17-08 Organism 1 ESCHERICHIA COLI U COLONY COUNT/QUANTITY >100,000 CFU/ml 1. ESCHERICHIA COLI M.I.C Interp --------- ------ * AMOXICILLIN/CLAVULATE 4 S * AMPICILLIN 8 S * CEFAZOLIN (CEPHALOSPORIN) UTI 4 S * CEFEPIME <=1 S * CEFTRIAXONE <=1 S * CEFUROXIME SODIUM 16 I * CIPROFLOXACIN <=0.25 S * ERTAPENEM <=0.5 S * GENTAMICIN <=1 S * IMIPENEM <=1 S * LEVOFLOXACIN <=0.12 S * NITROFURANTOIN 32 S * TETRACYCLINE <=1 S * TOBRAMYCIN <=1 S * TRIMETHOPRIM/SULFAMETHOXAZOLE <=20 S Microbiology 03/29/17 Blood Culture - Preliminary, Resulted Positive Blood Culture, Ecoli. 03/30/17 C. difficile DNA Amplification - Final, Complete, neg. 9/15/17 Urine Culture - Final, Complete Escherichia Coli X-Rays, CTs and MRIs 03/30/17 CT KUB IMPRESSION: 1. Moderate to severe left-sided hydronephrosis the level of the proximal left ureter. No obstructing renal stone identified in left ureter. Findings compatible with a proximal left ureteral stricture which could be benign or malignant. 2. Nonobstructing stones in the inferior pole of the left kidney. 3. Cholelithiasis. 4. Consolidation in the lung bases bilaterally compatible with atelectasis, aspiration or pneumonia. 5. Small bilateral pleural effusions. 6. Colonic diverticulosis without evidence of diverticulitis. 7. Atherosclerosis including dense atherosclerotic calcifications in the visualized coronary vasculature. 03/30/17 US RENAL IMPRESSION: 1. Left-sided renal stones. 2. Moderate left-sided hydronephrosis. 3. No right-sided renal stones or hydronephrosis 03/31/17- X-RAY CHEST, 2 VIEWS- No pneumothorax. Trace left pleural effusion. Moderate bibasilar pneumonia. Follow up plain films of the chest are recommended to ensure resolution, and to exclude underlying or central malignancy. 03/29/17 X-RAY CHEST ONE VIEW, PORTABLE IMPRESSION: Bibasilar pulmonary opacities may represent atelectasis caused by shallow inspiration. Recommend confirmation with a PA and lateral chest radiograph performed when the patient is able to follow breathing instructions. 03/29/17 CT BRAIN 1. No acute intracranial abnormality. 2. Age-related atrophy and chronic white matter ischemic changes. Cardiac Echo Impressions 03/31- Echo- The left ventricle is normal in size. Left ventricular systolic function is normal. The ejection fraction is estimated to be 60-65%. There is hypokinesis along the basal and mid inferior wall and basal inferolateral wall. The right ventricle is normal in size and function. Pulmonary artery pressures cannot be estimated because of the lack of a measurable TR jet velocity. The left atrium is moderately dilated. The right atrium is borderline dilated. There is no significant valvular heart disease. The aortic root is normal size. Assessment & Plan 86-year-old female with past medical history of osteoporosis, hypertension, hypothyroidism, hyperlipidemia, possible CAD presents for a fall down for unknown time and sepsis and acute encephalopathy most likely secondary to Ecoli Cystitis. CT Finding of L hydronephrosis s/p L Ureteral Stent on 04/01 by Urology. Septicemia due to Ecoli Cystitis, present on admission, active - Criteria- temperature 35C, blood cell count 27.4, urine is likely source of infection. Urine culture- GNR. Blood cultures- +Ecoli. Also consider PNA as secondary infection. - 03/29 Blood/Urine Cx + E. Coli. Repeat Blood Cx in AM. - Rocephin started on 03/29, pt worsened overnight w/ severe rigors so changed to Ertapenam, transitioned to PO Levofloxacin. - ID consulted, Dr. Ahn recs- Levofloxacin upon discharge. 10 days total. Mod-Severe L hydronephrosis, acute, active. No overt L flank pain. Possibly due to proximal left ureteral stricture as stone is non-obstructing. Per 03/30- CT KUB- L hydronephrosis at level of the proximal left ureter. Nonobstructing stones in the inferior pole of the left kidney. - Was likely precipitant for infection. - Had family meeting on 03/31, family and patient would want stent if indicated. Confirmed on 04/01 when obtaining consent. - Urology, Dr. Gutiérrez, following. placed L Ureteral Stent on 04/01. - Further evaluation and possible stone treatment would be as outpatient at future date. - F/u Urology recs. Acute kidney injury, acute, improving- Multifactorial etiology. Initial Scr 4.64. Likely primarily Post-Renal given of L Hydronephrosis. Possible component of ATN related to infection. - Gentle IVF, held 03/31 to avoid Volume Overload. - Hold losartan and HCTZ - Plan as above. - Improving mid 2's CR on 04/02. WE do not ahve her baseline, PCP records were requested Bibasilar pulmonary opacities on CXR- poa, active- +Sx w/ Cough. May be atelectasis, aspiration or pneumonia. less likely PNA, given clear urinary source. Aspiration possible as did have AMS upon admission. - 03.31- repeat CXR notes moderate bibasilar opacities. Small B/L pleural effusion noted. BNP elevated 13,490 after IVF. -She does have elevated BNP, discontinued fluids. - 03/31- Echo- EF 60-65%. hypokinesis along the basal and mid inferior wall and basal inferolateral wall. LA Mod dilated. - 04/02 CXR: "Atelectasis versus mild infiltrates seen at the lung bases." Indeterminate Elevated Troponins- poa, active Likely secondary to demand. Pt denies Chest pain, Initial Trop 0.026, peak. Abn Echo is concern. EKG- incomplete LBBB. No JUAN. 03/31- Echo- EF 60-65%. hypokinesis along the basal and mid inferior wall and basal inferolateral wall. Per pt, this is not a new finding as has been told this before. - As outpatient consider Stress test if develop angina or anginal equivalent. -- Elevated trop likely also d/t CHF - Follow up with PCP. Rhabdomyolysis most likely secondary to prolonged stay on the ground secondary to fall, present on admission, resolved. -CK 1997 on admit. Improved w/ IVF. Hypertension, present on admission, stable -Continue metoprolol by mouth twice a day -Hold losartan and HCTZ due to TRAY. -Hold amlodipine may restart when patient's blood pressure becomes elevated. Hypomagnesemia, present on admission, resolved. -Magnesium. Replete prn. Hypokalemia, present on admission, active -Replete prn. Elevated LFTs, present on admission, resolved -Most likely secondary to rhabdomyolysis and sepsis -Continue monitor Hypothyroidism, present on admission, stable -TSH- 7. -Continue levothyroxine 100 g by mouth daily Hyperlipidemia, present on admission, stable -Lipid panel- TG elevated 350. -Continue simvastatin 20 mg by mouth daily at bedtime Code Status: Full code Disposition: Anticipate discharge in 1-2 days on PO Levofloxacin. Will need to follow up with Urology as above. VTE Prophylaxis: Sub-Q Heparin (Unfractionated) Resuscitation Status: CPR: Attempt Resuscitation Time spent 35 min Doretha Causey DO Apr 02, 2017 07:52
[2017-04-03 04:40] VITALS: BP 165/76; PULSE 74; RESP 18; O2SAT 96
[2017-04-03 08:39] LABS: Mean Corpuscular Hemoglobin 29.7 pg (27.0-35.0); Mean Corpuscular Volume 85.6 fL (81-100); Platelet Count 252 bil/L (150-400)
[2017-04-03] MEDS: Heparin 5,000 Unit/mL Inj SUBQ SCH ×3 (08:50→23:50)
[2017-04-03] MEDS: Vitamin B Complex/Vit C Tablet PO SCH ×2 (08:50→20:25)
[2017-04-03] MEDS: levoFLOXacin 500 mg Tablet PO SCH (08:51)
[2017-04-03 09:13] LABS: BASOPHILS % (AUTO) 0 % (0-3); EOSINOPHILS % (AUTO) 3 % (0-5); MONOCYTES % (AUTO) 3 % (4-12); NEUTROPHILS % (AUTO) 70 % (40-74)
--- NOTE | 2017-04-03 09:59 | DRSVH ---
PROCEDURE: MRI STROKE PROTOCOL ([id number]) Pre- and post-contrast brain MRI, non-contrast brain MR angiogram, pre- and postcontrast neck MR lucie ogram INDICATIONS: Unexplained fall TECHNIQUE: Brain: Noncontrast axial T1 spin echo, axial T2 fast spin echo, sagittal and axial FLAIR, coronal T2 fast spin echo, axial gradient echo, axial diffusion and ADC through the brain. After the administr ation of contrast, axial 3D VIBE of the cranial vasculature and brain. Brain MRA: Non-contrast 3-D time of flight MR angiogram, with multiple fwttfvh-riacpgbld-juvgamhbjj (MIP) reformats performed. Neck MRA: Axial and sagittal TruFISP through the neck. Coronal dynamic MR angiogram during administ ration of contrast in the arterial and venous phases, with 3-dimenstional mvroeff-ezwlyjlya-nmgwisakp n (MIP) reformats constructed from subtraction images. COMPARISON: [facility], CT, CT BRAIN WO CON, 03/29/2017, 12:20. FINDINGS: Image quality: Excellent. BRAIN: CSF spaces: Ventricles are normal in size and shape. Basal cisterns are patent. No extra-axial flu id collections. Brain: No intracranial bleeds or mass effects. Alvarado-white matter interface is normal. Diffusion we ighted images show no acute ischemic insults. Brainstem appears normal. Normal intravascular flow v oids are present. No abnormal intracranial enhancement. Skull and face: Calvarial marrow signal is normal. Orbits appear normal. Note is made of bilateral lens replacements. Sinuses: Sinuses and mastoids are clear. BRAIN MR ANGIOGRAM: Anterior circulation: Intracranial internal carotid arteries are normal in size and enhancement. Th e flow within the paired anterior cerebral arteries is normal and symmetric. The flow within the mid dle cerebral arteries is normal and symmetric. The anterior communicating artery is faintly seen. N o stenoses, occlusions, or aneurysms. Posterior circulation: The visualized portions of the vertebral arteries demonstrate normal caliber, and join to form a normal appearing basilar artery. There is a prominent right posterior communicati ng artery seen, with an accompanying diminutive right P1 segment. This is attributed to a type origin of the right posterior cerebral artery, which is considered to be a normal developmental varia nt of typically no clinical consequence. The flow within the posterior cerebral arteries is normal a nd symmetric. No stenoses, occlusions, or aneurysms. NECK MR ANGIOGRAM: Carotids: Great vessels demonstrate a conventional anatomy as they arise from the aortic arch. The origins of the common carotid arteries appear patent. The calibers and courses of both common caroti d arteries are normal. The bifurcation regions appear normal bilaterally. The internal carotid lizette pedro demonstrate normal course and caliber. Posterior circulation: The origins of the vertebral arteries appear patent. The proximal vertebral arteries are tortuous. The right vertebral artery is dominant to the left, which is not regarded to be pathologic. Miscellaneous: Subclavian arteries appear patent. Pre-contrast images through the neck show no soft tissue abnormalities. IMPRESSION: BRAIN MRI: No findings of acute or subacute infarction can be seen. Note is made of age-appropriate brain parenchymal volume loss and chronic small vessel ischemic beltran es. No masses or abnormal enhancement can be seen. BRAIN MR ANGIOGRAM: No significant intracranial arterial abnormality is seen. NECK MR ANGIOGRAM: No significant arterial abnormality can be seen within the neck. The estimate of stenosis included in the report of the imaging study was calculated using the NASCET method Dictated by: Prosper Dillon M.D. on 04/03/2017 at 9:52 Approved by: Prosper Dillon M.D. on 04/03/2017 at 9:57
[2017-04-03 10:30] VITALS: BP 145/81; PULSE 64; RESP 18; O2SAT 96
[2017-04-03] MEDS ORDERED: Furosemide 10 mg/mL 4 mL Inj IVPUSH ONE (10:55)
[2017-04-03 12:56] VITALS: BP 151/79; PULSE 80; RESP 18; O2SAT 96
[2017-04-03] MEDS ORDERED: Codeine-guaiFENesin 5 mL Syrup PO PRN (13:45)
[2017-04-03] MEDS: Benzocaine-Menthol Lozenge 2/Pkg PO PRN (14:16)
[2017-04-03 16:31] VITALS: BP 147/82; PULSE 84; RESP 18; O2SAT 95
[2017-04-03 18:33] LABS: APPEARANCE,URINE CLEAR (CLEAR,HAZY); COLOR,URINE STRAW (YELLOW); OCCULT BLOOD,URINE TRACE (NEGATIVE)
[2017-04-03 18:34] LABS: UROBILINOGEN,URINE NORMAL (NORMAL)
--- NOTE | 2017-04-03 19:42 | PROG NOTE ---
[address] [address] PROGRESS NOTE PATIENT: BILLIE LAL : 1930 MR#: [id number] ADMIT: 03/29/2017 JOB ID: [id number] DATE: 04/03/2017 INFECTIOUS DISEASE FOLLOWUP NOTE: REASON FOR FOLLOWUP: Bacteremic ESBL complicated urinary tract infection status post left-sided ureteral stenting. INTERVAL HISTORY: The patient continues to slowly improve and feel stronger. She notes that she had considerable cough, especially last night, but that is improving. She is not short of breath today. She denies nausea or vomiting, though her appetite is not great. She has no dysuria. No fevers or chills. PHYSICAL EXAMINATION: Reveals an afebrile woman temp 36.7, pulse 84, respiratory rate 18, blood pressure 147/82. She is saturating well on room air and getting around with a walker. Overall she has improved. Mental status relatively clear. Lungs are clear. No abdominal tenderness. No flank tenderness. No skin rash. LABORATORIES: Include a white count 19,300. Note that her white count has been bouncing around now for several days between a low of 11 and a high of 19, but usually around 15,000 or 16,000. The diff does show 4% myelocytes, which is new and a bit worrisome. Creatinine is down to 1.18, which is dramatically improving. A repeat urinalysis shows no white cells. Other studies which have been done including the blood and urine which grew E. coli earlier. Followup blood cultures on the were negative. A stool PCR was done today and was negative. Additional blood cultures done today and they are too early to interpret. A respiratory viral PCR panel was done today which was negative. IMAGING: MRI scan of the brain was done today and shows no acute or subacute lesions. A chest x-ray done yesterday was reviewed. It shows atelectasis versus mild infiltrates at the bases. IMPRESSION: From a clinical point of view, the patient is still making steady progress. Her bacteremic ESBL complicated E. coli urinary tract infection seems under excellent control. She is on levofloxacin both for coverage of the complicated urinary tract infection as well as possible coverage of a bacterial pneumonia, though I do not think she has one. The only concern I have is the left shift in her white cell count. RECOMMENDATIONS: 1. Will continue with levofloxacin through April 11 at a dose of 500 a day. 2. CBC and procalcitonin will be ordered for tomorrow morning. 3. If her labs look reasonably good tomorrow, I think we can consider discharge in the near future as the patient is improving ambulatory status allows. Thank you very much.
[2017-04-03 19:57] VITALS: BP 112/66; PULSE 88; RESP 20; O2SAT 99
[2017-04-03] MEDS: Codeine-guaiFENesin 10 mL Syrup PO PRN (20:38)
--- NOTE | 2017-04-03 21:46 | PCM.PNMED ---
Subjective Date of Service Apr 03, 2017 Subjective Patient is seen and examined. Family is present in the room and questions were answered she has worked with physical therapy this a.m. she is not short of breath but is endorsing increased leg swelling. No other concerns Exam Vital Signs Vital Sign - Last Date Time Temp Pulse Resp B/P Pulse Ox O2 Delivery O2 Flow Rate FiO2 04/03/17 19:57 36.7 88 20 112/66 99 Room Air 04/01/17 11:20 2 Intake and Output 04/02/17 04/02/17 04/03/17 Cumulative From/Thru 15:00 23:00 07:00 03/29/17 10:52 - 04/03/17 06:46 Intake Total 1647 ml 600 ml 40140 ml Output Total 675 ml 1200 ml 7175 ml Balance 972 ml -600 ml 5271 ml Intake Oral 1109 ml 600 ml 6369 ml IV Total 538 ml 6077 ml Output Urine Total 675 ml 1200 ml 7175 ml # Voids 3 3 # Bowel Movements 6 3 15 Exam General: NAD HEENT: NCAT Heart: RRR, no s3/s4 Lungs: CTA no crackles or wheezes Abd: Soft, non distended Ext: 1+ pitting edema L>R NEuro: No focal deficits PSych: Neg for anxiety IVs and Medications Medications Reviewed: Medications were reviewed in detail Lab and Diagnostics Result Diagram: 04/03/1781904/03/17819 Microbiology DANYELLE CULT URINE Final 03/31/17-0801 Organism 1 ESCHERICHIA COLI U COLONY COUNT/QUANTITY >100,000 CFU/ml 1. ESCHERICHIA COLI M.I.C Interp --------- ------ * AMOXICILLIN/CLAVULATE 4 S * AMPICILLIN 8 S * CEFAZOLIN (CEPHALOSPORIN) UTI 4 S * CEFEPIME <=1 S * CEFTRIAXONE <=1 S * CEFUROXIME SODIUM 16 I * CIPROFLOXACIN <=0.25 S * ERTAPENEM <=0.5 S * GENTAMICIN <=1 S * IMIPENEM <=1 S * LEVOFLOXACIN <=0.12 S * NITROFURANTOIN 32 S * TETRACYCLINE <=1 S * TOBRAMYCIN <=1 S * TRIMETHOPRIM/SULFAMETHOXAZOLE <=20 S Microbiology 03/29/17 Blood Culture - Preliminary, Resulted Positive Blood Culture, Ecoli. 03/30/17 C. difficile DNA Amplification - Final, Complete, neg. 03/29/17 Urine Culture - Final, Complete Escherichia Coli X-Rays, CTs and MRIs 03/30/17 CT KUB IMPRESSION: 1. Moderate to severe left-sided hydronephrosis the level of the proximal left ureter. No obstructing renal stone identified in left ureter. Findings compatible with a proximal left ureteral stricture which could be benign or malignant. 2. Nonobstructing stones in the inferior pole of the left kidney. 3. Cholelithiasis. 4. Consolidation in the lung bases bilaterally compatible with atelectasis, aspiration or pneumonia. 5. Small bilateral pleural effusions. 6. Colonic diverticulosis without evidence of diverticulitis. 7. Atherosclerosis including dense atherosclerotic calcifications in the visualized coronary vasculature. 03/30/17 US RENAL IMPRESSION: 1. Left-sided renal stones. 2. Moderate left-sided hydronephrosis. 3. No right-sided renal stones or hydronephrosis 03/31/17- X-RAY CHEST, 2 VIEWS- No pneumothorax. Trace left pleural effusion. Moderate bibasilar pneumonia. Follow up plain films of the chest are recommended to ensure resolution, and to exclude underlying or central malignancy. 03/29/17 X-RAY CHEST ONE VIEW, PORTABLE IMPRESSION: Bibasilar pulmonary opacities may represent atelectasis caused by shallow inspiration. Recommend confirmation with a PA and lateral chest radiograph performed when the patient is able to follow breathing instructions. 03/29/17 CT BRAIN 1. No acute intracranial abnormality. 2. Age-related atrophy and chronic white matter ischemic changes. Cardiac Echo Impressions 03/31- Echo- The left ventricle is normal in size. Left ventricular systolic function is normal. The ejection fraction is estimated to be 60-65%. There is hypokinesis along the basal and mid inferior wall and basal inferolateral wall. The right ventricle is normal in size and function. Pulmonary artery pressures cannot be estimated because of the lack of a measurable TR jet velocity. The left atrium is moderately dilated. The right atrium is borderline dilated. There is no significant valvular heart disease. The aortic root is normal size. Assessment & Plan 86-year-old female with past medical history of osteoporosis, hypertension, hypothyroidism, hyperlipidemia, possible CAD presents for a fall down for unknown time and sepsis and acute encephalopathy most likely secondary to Ecoli Cystitis. CT Finding of L hydronephrosis s/p L Ureteral Stent on 04/01 by Urology. Acute CHF of unknown type 04/03 -- Likely due to fluid overload [place] [address] -- Increased peripheral edema, positive JVD on physical exam -- Patient was given 40 mg of IV Lasix Leukocytosis, POA worsened on 04/03 -- White count is 19 today -- Ordered resp panel, strep pneumo urine Legionella urine tests -- Repeat blood cultures -- Dr. Ahn has seen the patient again, no change in plan. We appreciate his time and recommendations Septicemia due to Ecoli Cystitis, present on admission, active - Criteria- temperature 35C, blood cell count 27.4, urine is likely source of infection. Urine culture- GNR. Blood cultures- +Ecoli. Also consider PNA as secondary infection. - 03/29 Blood/Urine Cx + E. Coli. Repeat Blood Cx in AM. - Rocephin started on 03/29, pt worsened overnight w/ severe rigors so changed to Ertapenam, transitioned to PO Levofloxacin. - ID consulted, Dr. Ahn recs- Levofloxacin upon discharge. 10 days total. He has seen the patient again upon my request, no change in plan. We appreciate their time and recommendations -- Discussed diagnosis, workup, imaging, and treatment plan with patient and family. They expressed an verbalized their understanding. Mod-Severe L hydronephrosis, acute, active. No overt L flank pain. Possibly due to proximal left ureteral stricture as stone is non-obstructing. Per 03/30- CT KUB- L hydronephrosis at level of the proximal left ureter. Nonobstructing stones in the inferior pole of the left kidney. - Was likely precipitant for infection. - Had family meeting on 03/31, family and patient would want stent if indicated. Confirmed on 04/01 when obtaining consent. - Urology, Dr. Gutiérrez, following. placed L Ureteral Stent on 04/01. - Further evaluation and possible stone treatment would be as outpatient at future date. - F/u Urology recs. Acute kidney injury, acute, resolved - Multifactorial etiology. Initial Scr 4.64. Likely primarily Post-Renal given of L Hydronephrosis. Possible component of ATN related to infection. - Gentle IVF, held 03/31 to avoid Volume Overload. - Hold losartan and HCTZ - Plan as above. - Improving mid 2's CR on 04/02. WE do not ahve her baseline, PCP records were requested, not yet received Bibasilar pulmonary opacities on CXR- poa, active- +Sx w/ Cough. May be atelectasis, aspiration or pneumonia. less likely PNA, given clear urinary source. Aspiration possible as did have AMS upon admission. - 03.31- repeat CXR notes moderate bibasilar opacities. Small B/L pleural effusion noted. BNP elevated 13,490 after IVF. -She does have elevated BNP, discontinued fluids. - 03/31- Echo- EF 60-65%. hypokinesis along the basal and mid inferior wall and basal inferolateral wall. LA Mod dilated. - 04/02 CXR: "Atelectasis versus mild infiltrates seen at the lung bases." Indeterminate Elevated Troponins- poa, active Likely secondary to demand. Pt denies Chest pain, Initial Trop 0.026, peak. Abn Echo is concern. EKG- incomplete LBBB. No JUAN. 03/31- Echo- EF 60-65%. hypokinesis along the basal and mid inferior wall and basal inferolateral wall. Per pt, this is not a new finding as has been told this before. - As outpatient consider Stress test if develop angina or anginal equivalent. -- Elevated trop likely also d/t CHF - Follow up with PCP. Rhabdomyolysis most likely secondary to prolonged stay on the ground secondary to fall, present on admission, resolved. -CK 1997 on admit. Improved w/ IVF. Hypertension, present on admission, stable -Continue metoprolol by mouth twice a day -Hold losartan and HCTZ due to TRAY. -Hold amlodipine may restart when patient's blood pressure becomes elevated. Hypomagnesemia, present on admission, resolved. -Magnesium. Replete prn. Hypokalemia, present on admission, active -Replete prn. Elevated LFTs, present on admission, resolved -Most likely secondary to rhabdomyolysis and sepsis -Continue monitor Hypothyroidism, present on admission, stable -TSH- 7. -Continue levothyroxine 100 g by mouth daily Hyperlipidemia, present on admission, stable -Lipid panel- TG elevated 350. -Continue simvastatin 20 mg by mouth daily at bedtime Code Status: Full code Disposition: Anticipate discharge in 1-2 days on PO Levofloxacin. Will need to follow up with Urology as above. Reviewed ER documentation, lab work, imaging. Reviewed prior [facility] records, lab work, imaging for this Hospital stay. VTE Prophylaxis: Sub-Q Heparin (Unfractionated) Resuscitation Status: CPR: Attempt Resuscitation Time spent 25 min Doretha Causey DO Apr 03, 2017 21:46
[2017-04-04 00:52] VITALS: BP 114/70; PULSE 74; RESP 20; O2SAT 95
[2017-04-04 05:56] VITALS: BP 139/70; PULSE 78; RESP 18; O2SAT 96
[2017-04-04 06:09] LABS: Mean Corpuscular Hemoglobin 28.8 pg (27.0-35.0); Mean Corpuscular Volume 86.2 fL (81-100); Platelet Count 239 bil/L (150-400)
[2017-04-04 07:02] LABS: BASOPHILS % (AUTO) 0 % (0-3); EOSINOPHILS % (AUTO) 5 % (0-5); MONOCYTES % (AUTO) 6 % (4-12); NEUTROPHILS % (AUTO) 69 % (40-74)
[2017-04-04] MEDS: Benzocaine-Menthol Lozenge 2/Pkg PO PRN ×3 (08:19→22:32)
[2017-04-04] MEDS: levoFLOXacin 500 mg Tablet PO SCH (08:20)
[2017-04-04] MEDS: Vitamin B Complex/Vit C Tablet PO SCH ×2 (08:22→21:39)
[2017-04-04] MEDS: Heparin 5,000 Unit/mL Inj SUBQ SCH ×3 (08:22→23:27)
[2017-04-04 09:43] VITALS: BP 151/75; PULSE 76; RESP 18; O2SAT 97
--- NOTE | 2017-04-04 12:24 | PROG NOTE ---
[address] [address] PROGRESS NOTE PATIENT: BILLIE LAL : 1930 MR#: [id number] ADMIT: 03/29/2017 JOB ID: [id number] DATE: 04/04/2017 INFECTIOUS DISEASE FOLLOWUP NOTE: REASON FOR FOLLOWUP: Complicated urinary tract infection. INTERVAL HISTORY: Overnight the patient has been feeling gradually better. She was seen walking around the entire [place] this morning with benefit of her walker without too much difficulty. She says she is a little shaky, but she has no particular fevers, chills, or cough. No additional urinary complaints. PHYSICAL EXAMINATION: Reveals an afebrile woman. No acute distress. Temp 36.6, pulse 76, respiratory rate 18, blood pressure 151/75. Lungs are quite clear posteriorly this morning. Abdomen benign. No significant flank pain. LABORATORIES: Include white count 17,000, which is down from 19 yesterday. Of great significance is her procalcitonin, which started off at 58 and is now down to 1. This is a 98% drop and correlates very strongly in the literature with a good outcome. Followup cultures are negative. Recall that initially we had E. coli in blood and urine. IMPRESSION: This patient is doing very well and I think she could reasonably be discharged here in the near future. To continue to treat her bacteremic ESBL E. coli infection I would continue with levofloxacin through April 11. RECOMMENDATIONS: 1. Levofloxacin 500 a day through April 11. 2. The patient could be discharged at any time from an Infectious Disease point of view. 3. ID will go ahead and sign off at this point. Thank you very much.
[2017-04-04 12:54] VITALS: BP 126/68; PULSE 71; RESP 16; O2SAT 98
[2017-04-04] MEDS ORDERED: Furosemide 10 mg/mL 4 mL Inj IVPUSH ONE (13:05)
[2017-04-04 14:23] VITALS: BP 165/75; PULSE 98; RESP 18; O2SAT 98
[2017-04-04] MEDS: guaiFENesin 600 mg ER12 Tablet PO SCH ×2 (14:59→21:39)
--- NOTE | 2017-04-04 15:45 | PCM.PNMED ---
Subjective Date of Service Apr 04, 2017 Subjective Patient is seen and examined. She states that she is pending somewhat better. Discussed diagnosis, workup, imaging, and treatment plan with patient and family. They expressed an verbalized their understanding. Exam Vital Signs Vital Sign - Last Date Time Temp Pulse Resp B/P Pulse Ox O2 Delivery O2 Flow Rate FiO2 04/04/17 14:23 36.4 98 18 165/75 98 Room Air 04/01/17 11:20 2 Intake and Output 04/03/17 04/03/17 04/04/17 Cumulative From/Thru 15:00 23:00 07:00 03/29/17 10:52 - 04/04/17 06:13 Intake Total 900 ml 200 ml 03004 ml Output Total 2150 ml 1350 ml 10600 ml Balance -1250 ml -1150 ml 2871 ml Intake Oral 900 ml 200 ml 7469 ml IV Total 6077 ml Output Urine Total 2150 ml 1350 ml 52592 ml # Voids 3 # Bowel Movements 2 1 18 Exam General: NAD HEENT: NCAT Heart: RRR, no s3/s4 Lungs: CTA no crackles or wheezes Abd: Soft, non distended Ext: 1+ pitting edema L>R NEuro: No focal deficits PSych: Neg for anxiety IVs and Medications IV Fluids None Medications Reviewed: Medications were reviewed in detail Lab and Diagnostics Result Diagram: 04/04/1753704/04/17537 Microbiology DANYELLE CULT URINE Final 03/31/17-08 Organism 1 ESCHERICHIA COLI U COLONY COUNT/QUANTITY >100,000 CFU/ml 1. ESCHERICHIA COLI M.I.C Interp --------- ------ * AMOXICILLIN/CLAVULATE 4 S * AMPICILLIN 8 S * CEFAZOLIN (CEPHALOSPORIN) UTI 4 S * CEFEPIME <=1 S * CEFTRIAXONE <=1 S * CEFUROXIME SODIUM 16 I * CIPROFLOXACIN <=0.25 S * ERTAPENEM <=0.5 S * GENTAMICIN <=1 S * IMIPENEM <=1 S * LEVOFLOXACIN <=0.12 S * NITROFURANTOIN 32 S * TETRACYCLINE <=1 S * TOBRAMYCIN <=1 S * TRIMETHOPRIM/SULFAMETHOXAZOLE <=20 S Microbiology 03/29/17 Blood Culture - Preliminary, Resulted Positive Blood Culture, Ecoli. 03/30/17 C. difficile DNA Amplification - Final, Complete, neg. 03/29/17 Urine Culture - Final, Complete Escherichia Coli X-Rays, CTs and MRIs 03/30/17 CT KUB IMPRESSION: 1. Moderate to severe left-sided hydronephrosis the level of the proximal left ureter. No obstructing renal stone identified in left ureter. Findings compatible with a proximal left ureteral stricture which could be benign or malignant. 2. Nonobstructing stones in the inferior pole of the left kidney. 3. Cholelithiasis. 4. Consolidation in the lung bases bilaterally compatible with atelectasis, aspiration or pneumonia. 5. Small bilateral pleural effusions. 6. Colonic diverticulosis without evidence of diverticulitis. 7. Atherosclerosis including dense atherosclerotic calcifications in the visualized coronary vasculature. 03/30/17 US RENAL IMPRESSION: 1. Left-sided renal stones. 2. Moderate left-sided hydronephrosis. 3. No right-sided renal stones or hydronephrosis 03/31/17- X-RAY CHEST, 2 VIEWS- No pneumothorax. Trace left pleural effusion. Moderate bibasilar pneumonia. Follow up plain films of the chest are recommended to ensure resolution, and to exclude underlying or central malignancy. 03/29/17 X-RAY CHEST ONE VIEW, PORTABLE IMPRESSION: Bibasilar pulmonary opacities may represent atelectasis caused by shallow inspiration. Recommend confirmation with a PA and lateral chest radiograph performed when the patient is able to follow breathing instructions. 03/29/17 CT BRAIN 1. No acute intracranial abnormality. 2. Age-related atrophy and chronic white matter ischemic changes. Cardiac Echo Impressions 03/31- Echo- The left ventricle is normal in size. Left ventricular systolic function is normal. The ejection fraction is estimated to be 60-65%. There is hypokinesis along the basal and mid inferior wall and basal inferolateral wall. The right ventricle is normal in size and function. Pulmonary artery pressures cannot be estimated because of the lack of a measurable TR jet velocity. The left atrium is moderately dilated. The right atrium is borderline dilated. There is no significant valvular heart disease. The aortic root is normal size. Assessment & Plan 86-year-old female with past medical history of osteoporosis, hypertension, hypothyroidism, hyperlipidemia, possible CAD presents for a fall down for unknown time and sepsis and acute encephalopathy most likely secondary to Ecoli Cystitis. CT Finding of L hydronephrosis s/p L Ureteral Stent on 04/01 by Urology. Acute CHF of unknown type 04/03 -- Likely due to fluid overload [place] [address] -- Increased peripheral edema, positive JVD on physical exam -- Patient was given 40 mg of IV Lasix 04/03 a.m.Again 04/04 AM Leukocytosis, POA worsened on 04/03, improving on 04/04 -- White count is 19 today -- Ordered resp panel, strep pneumo urine Legionella urine tests -- Repeat blood cultures -- Dr. Ahn has seen the patient again, no change in plan. We appreciate his time and recommendations --"1. Levofloxacin 500 a day through April 11." Septicemia due to Ecoli Cystitis, present on admission, active - Criteria- temperature 35C, blood cell count 27.4, urine is likely source of infection. Urine culture- GNR. Blood cultures- +Ecoli. Also consider PNA as secondary infection. - 03/29 Blood/Urine Cx + E. Coli. Repeat Blood Cx in AM. - Rocephin started on 03/29, pt worsened overnight w/ severe rigors so changed to Ertapenam, transitioned to PO Levofloxacin. - ID consulted, Dr. Ahn recs- Levofloxacin upon discharge. 10 days total. He has seen the patient again upon my request, no change in plan. We appreciate their time and recommendations -- Discussed diagnosis, workup, imaging, and treatment plan with patient and family. They expressed an verbalized their understanding. Mod-Severe L hydronephrosis, acute, active. No overt L flank pain. Possibly due to proximal left ureteral stricture as stone is non-obstructing. Per 03/30- CT KUB- L hydronephrosis at level of the proximal left ureter. Nonobstructing stones in the inferior pole of the left kidney. - Was likely precipitant for infection. - Had family meeting on 03/31, family and patient would want stent if indicated. Confirmed on 04/01 when obtaining consent. - Urology, Dr. Gutiérrez, following. placed L Ureteral Stent on 04/01. - Further evaluation and possible stone treatment would be as outpatient at future date. - F/u Urology recs. Acute kidney injury, acute, resolved - Multifactorial etiology. Initial Scr 4.64. Likely primarily Post-Renal given of L Hydronephrosis. Possible component of ATN related to infection. - Gentle IVF, held 03/31 to avoid Volume Overload. - Hold losartan and HCTZ - Plan as above. - PCP records were requested - Creatinine on 04/04 1.18 Bibasilar pulmonary opacities on CXR- poa, active- +Sx w/ Cough. May be atelectasis, aspiration or pneumonia. less likely PNA, given clear urinary source. Aspiration possible as did have AMS upon admission. - 03.31- repeat CXR notes moderate bibasilar opacities. Small B/L pleural effusion noted. BNP elevated 13,490 after IVF. -She does have elevated BNP, discontinued fluids. - 03/31- Echo- EF 60-65%. hypokinesis along the basal and mid inferior wall and basal inferolateral wall. LA Mod dilated. - 04/02 CXR: "Atelectasis versus mild infiltrates seen at the lung bases." -- Patient was given 2 doses of IV Lasix as above -- Patient is on Levaquin for UTI, this will treat pneumonia as all -- Mucinex 600 mg PO BID for cough Indeterminate Elevated Troponins- poa, active Likely secondary to demand. Pt denies Chest pain, Initial Trop 0.026, peak. Abn Echo is concern. EKG- incomplete LBBB. No JUAN. 03/31- Echo- EF 60-65%. hypokinesis along the basal and mid inferior wall and basal inferolateral wall. Per pt, this is not a new finding as has been told this before. - As outpatient consider Stress test if develop angina or anginal equivalent. -- Elevated trop likely also d/t CHF Rhabdomyolysis most likely secondary to prolonged stay on the ground secondary to fall, present on admission, resolved. -CK 1996 on admit. Improved w/ IVF. Hypertension, present on admission, stable -Continue metoprolol by mouth twice a day -Restarted losartan for 04/05 -- Hold Hydrochlorothiazide until discharge as she is being given diuretics/ Lasix -- Hold amlodipine Hypomagnesemia, present on admission, resolved. -Magnesium. Replete prn. Hypokalemia, present on admission, active -Replete prn. Elevated LFTs, present on admission, resolved -Most likely secondary to rhabdomyolysis and sepsis -Continue monitor Hypothyroidism, present on admission, stable -TSH- 7. -Continue levothyroxine 100 g by mouth daily Hyperlipidemia, present on admission, stable -Lipid panel- TG elevated 350. -Continue simvastatin 20 mg by mouth daily at bedtime Code Status: Full code Disposition: Anticipate discharge in 1-2 days on PO Levofloxacin. Will need to follow up with Urology as above. Reviewed ER documentation, lab work, imaging. Reviewed prior [facility] records, lab work, imaging for this Hospital stay. Pain Evaluation: Adequate Pain Control VTE Prophylaxis: Sub-Q Heparin (Unfractionated) VTE Mechanical Devices: Venous Foot Pump Resuscitation Status: CPR: Attempt Resuscitation Time spent One hour Doretha Causey DO Apr 04, 2017 15:45
[2017-04-04] MEDS ORDERED: [UNRECOGNIZED DRUG - SUPPLY] (15:53)
[2017-04-04] MEDS: Codeine-guaiFENesin 10 mL Syrup PO PRN ×2 (19:41→23:26)
[2017-04-04 20:32] VITALS: BP 148/68; PULSE 98; RESP 16; O2SAT 97
[2017-04-05 02:24] VITALS: BP 153/70; PULSE 75; RESP 20; O2SAT 95
[2017-04-05] MEDS: Codeine-guaiFENesin 10 mL Syrup PO PRN (03:43)
[2017-04-05] MEDS: Benzocaine-Menthol Lozenge 2/Pkg PO PRN (05:42)
[2017-04-05 06:00] VITALS: BP 155/68; PULSE 72; RESP 20; O2SAT 96
[2017-04-05] MEDS: guaiFENesin 600 mg ER12 Tablet PO SCH (07:40)
[2017-04-05] MEDS: levoFLOXacin 500 mg Tablet PO SCH (07:41)
[2017-04-05] MEDS: Heparin 5,000 Unit/mL Inj SUBQ SCH (07:41)
[2017-04-05] MEDS: Vitamin B Complex/Vit C Tablet PO SCH (07:46)
[2017-04-05 09:19] VITALS: BP 113/64; PULSE 70; RESP 18; O2SAT 97
[2017-04-05 10:08] LABS: Mean Corpuscular Hemoglobin 28.8 pg (27.0-35.0); Mean Corpuscular Volume 87.4 fL (81-100)
[2017-04-05] MEDS ORDERED: LEVO500T20 PO (10:54)
[2017-04-05] MEDS ORDERED: BENZ-12 PO (11:49)
[2017-04-05] MEDS ORDERED: GUAI600T2 PO (11:49)
[2017-04-05] MEDS ORDERED: LACT1CAP26 PO (11:51)
--- NOTE | 2017-04-05 11:55 | PCM.DIMED ---
Discharge Instructions Date of Service Apr 05, 2017 Dates of Hospitalization Mar 29, 2017 at 13:52 Discharge Diagnosis Discharge Diagnosis Sepsis due to E Coli Bacteremia, Cystitis,L ureteral stricture s/p ureteral stent, Acute kid injury, Rhabdomyolysis, HTN Medication Instructions Additional med instructions New medication levaquin antibiotic through 04/11/17 Acidophilus to help with probiotics to avoid diarrhea Robitussin AC and tessalon pels to help with cough Diet Discharge Diet: Heart Healthy Activity Discharge Activity: No restrictions Call your provider Call your provider for: Fever or Chills Patient Instructions Follow-up plan Follow up CBC and BMP in four days F/U with PCP in one week F/U with Urology in one week w/Dr. Maura Cox We request that patient follows up with PCP for possible barium swallow study as outpatient, and possible GI referral for an EGD Doretha Causey DO Apr 05, 2017 11:55
[2017-04-05] MEDS ORDERED: GUAI118L13 PO (12:04)
--- NOTE | 2017-04-05 23:48 | PCM.DC.MED ---
Discharge Summary Date of Service Apr 05, 2017 Dates of Hospitalization Date of Hospital Admission Mar 29, 2017 at 13:52 Date of Discharge: Apr 05, 2017 Providers: Admitting Physician: Linda Alexander DO Primary Care Physician: Bartolo Durán MD Attending Physician: Doretha Yu DO Diagnosis at Time of Discharge Diagnosis at Time of Discharge Sepsis due to E Coli Bacteremia, Cystitis,L ureteral stricture s/p ureteral stent, Acute kid injury, Rhabdomyolysis, HTN Procedures XRay, CTs & MRIs 03/30/17 CT KUB IMPRESSION: 1. Moderate to severe left-sided hydronephrosis the level of the proximal left ureter. No obstructing renal stone identified in left ureter. Findings compatible with a proximal left ureteral stricture which could be benign or malignant. 2. Nonobstructing stones in the inferior pole of the left kidney. 3. Cholelithiasis. 4. Consolidation in the lung bases bilaterally compatible with atelectasis, aspiration or pneumonia. 5. Small bilateral pleural effusions. 6. Colonic diverticulosis without evidence of diverticulitis. 7. Atherosclerosis including dense atherosclerotic calcifications in the visualized coronary vasculature. 03/30/17 US RENAL IMPRESSION: 1. Left-sided renal stones. 2. Moderate left-sided hydronephrosis. 3. No right-sided renal stones or hydronephrosis 03/31/17- X-RAY CHEST, 2 VIEWS- No pneumothorax. Trace left pleural effusion. Moderate bibasilar pneumonia. Follow up plain films of the chest are recommended to ensure resolution, and to exclude underlying or central malignancy. 03/29/17 X-RAY CHEST ONE VIEW, PORTABLE IMPRESSION: Bibasilar pulmonary opacities may represent atelectasis caused by shallow inspiration. Recommend confirmation with a PA and lateral chest radiograph performed when the patient is able to follow breathing instructions. 03/29/17 CT BRAIN 1. No acute intracranial abnormality. 2. Age-related atrophy and chronic white matter ischemic changes. Cardiac Echo Impression 03/31- Echo- The left ventricle is normal in size. Left ventricular systolic function is normal. The ejection fraction is estimated to be 60-65%. There is hypokinesis along the basal and mid inferior wall and basal inferolateral wall. The right ventricle is normal in size and function. Pulmonary artery pressures cannot be estimated because of the lack of a measurable TR jet velocity. The left atrium is moderately dilated. The right atrium is borderline dilated. There is no significant valvular heart disease. The aortic root is normal size. Brief History Ms Pillai is an 86 F with sepsis from presumed urinary source. Her blood and urine cultures appear positive for E coli. She is coherent and appropriate during her interview on my arrival. She states she feels cold, but she no longer has rigors as she did earlier today. CT is concerning for LEFT moderate hydronephrosis with hydroureter down to the proximal ureter, appearing distal to the UPJ. - There is also stone present in the lower pole. Her Cr is in the 3s range, and she apparently has normal renal function prior to this event. She feels that she has had LUQ pain, but it's overall not severe or terribly strong. Note auto-imported into HPI from intake H+P: "The patient is 86-year-old female who presents to the emergency room secondary to altered mental status. The patient currently lives at home alone and her friends had not seen her in a while and stopped by to see her and found her down on the ground and the place was disheveled and they decided to call EMS. When asked the patient stated that the last thing she remembered was that she was on her way to the bathroom but then fell however she is unable to state how long she had been down or if she had hit her head. The patient is currently confused and is unable to answer all questions appropriately. A CT of the head was done as the patient was unable to remember if she had which was found to be negative for any acute intracranial processes. A chest x-ray was also performed in the ED which shows bibasilar pulmonary opacities however this may be consistent with atelectasis. The patient's white blood cell count was found to be significantly elevated at 27.4 with 4% bands, patient's sodium was 133, potassium 3.3, creatinine 4.64, troponin 0.026, procalcitonin 58, lactic acid 2.2, magnesium 1.5. The patient' s urine was positive for many bacteria and leukocyte esterase. Patient's urine was sent for culture and the patient is being admitted for acute encephalopathy most likely secondary to cystitis The patient has altered mental status and there were no family members at the side of the bed nor was anybody able to be reached by phone. The patient's history was taken via chart review, EMS, and pharmacy review." Hospital Course 86-year-old female with past medical history of osteoporosis, hypertension, hypothyroidism, hyperlipidemia, possible CAD presents for a fall down for unknown time and sepsis and acute encephalopathy most likely secondary to Ecoli Cystitis. CT Finding of L hydronephrosis s/p L Ureteral Stent on 04/01 by Urology. Septicemia due to Ecoli Cystitis, present on admission, resolved - Criteria- temperature 35C, blood cell count 27.4, urine is likely source of infection. Urine culture- GNR. Blood cultures- +Ecoli. Also consider PNA as secondary infection. - 03/29 Blood/Urine Cx + E. Coli. Repeat Blood Cx in AM. - Rocephin started on 03/29, pt worsened overnight w/ severe rigors so changed to Ertapenam, transitioned to PO Levofloxacin. - ID consulted, Dr. Jimy siddiqui- Levofloxacin upon discharge. 10 days total. He has seen the patient again upon my request, no change in plan. We appreciate their time and recommendations -- Discussed diagnosis, workup, imaging, and treatment plan with patient and family. They expressed an verbalized their understanding. Mod-Severe L hydronephrosis, acute, active. No overt L flank pain. Possibly due to proximal left ureteral stricture as stone is non-obstructing. Per 03/30- CT KUB- L hydronephrosis at level of the proximal left ureter. Nonobstructing stones in the inferior pole of the left kidney. - Was likely precipitant for infection. - Had family meeting on 03/31, family and patient would want stent if indicated. Confirmed on 04/01 when obtaining consent. - Urology, Dr. Gutiérrez, following. placed L Ureteral Stent on 04/01. - Further evaluation and possible stone treatment would be as outpatient at future date. - F/u Urology recs. -- Arranged for a one week f/u with Dr. Cox's office. Acute kidney injury, acute, resolved - Multifactorial etiology. Initial Scr 4.64. Likely primarily Post-Renal given of L Hydronephrosis. Possible component of ATN related to infection. - Gentle IVF, held 03/31 to avoid Volume Overload. - Nephrotoxic medications were held - PCP records were requested but none were received, we do not know her exact base line but her Cr has much improved on the day of d/c - F/U lab work is given Bibasilar pulmonary opacities on CXR- poa, active- +Sx w/ Cough. May be atelectasis, aspiration or pneumonia. less likely PNA, given clear urinary source. Aspiration possible as did have AMS upon admission. - 03.31- repeat CXR notes moderate bibasilar opacities. Small B/L pleural effusion noted. BNP elevated 13,490 after IVF. - She does have elevated BNP, discontinued fluids. - 03/31- Echo- EF 60-65%. hypokinesis along the basal and mid inferior wall and basal inferolateral wall. LA Mod dilated. - 04/02 CXR: "Atelectasis versus mild infiltrates seen at the lung bases." -- Patient was given 2 doses of IV Lasix as above -- Patient is on Levaquin for UTI, this will treat pneumonia as all -- Mucinex 600 mg PO BID for cough Acute CHF of unknown type 04/03 -- Likely due to [place] overload [place] [address] -- Increased peripheral edema, positive JVD on physical exam -- Patient was given 40 mg of IV Lasix 04/03 a.m.Again 04/04 AM with great relief of symptoms Leukocytosis, POA worsened on 04/03, improving on 04/04 -- White count elevated on 04/03 -- White count is 19 on the day of discharge, this may be due to the stent, patient is clinically much improved, walking the hallways, not experiencing dyspnea and stating that she is feeling much better than ever since admission.. She is wanting to be discharged home -- Follow-up lab work is given to recheck Indeterminate Elevated Troponins- poa, active Likely secondary to demand. Pt denies Chest pain, Initial Trop 0.026, peak. Abn Echo is concern. EKG- incomplete LBBB. No JUAN. 03/31- Echo- EF 60-65%. hypokinesis along the basal and mid inferior wall and basal inferolateral wall. Per pt, this is not a new finding as has been told this before. - As outpatient consider Stress test if develop angina or anginal equivalent. -- Elevated trop likely also d/t CHF Rhabdomyolysis most likely secondary to prolonged stay on the ground secondary to fall, present on admission, resolved. -CK 1996 on admit. Improved w/ IVF. Hypertension, present on admission, stable -Continue metoprolol by mouth twice a day -Restarted losartan for 04/05 -Hold Hydrochlorothiazide until discharge as she is being given diuretics/Lasix -restarted amlodipine 04/03 Hypomagnesemia, present on admission, resolved. -Magnesium. Replete prn. Hypokalemia, present on admission, active -Replete prn. Elevated LFTs, present on admission, resolved -Most likely secondary to rhabdomyolysis and sepsis -Continue monitor Hypothyroidism, present on admission, stable -TSH- 7. -Continue levothyroxine 100 g by mouth daily Hyperlipidemia, present on admission, stable -Lipid panel- TG elevated 350. -Continue simvastatin 20 mg by mouth daily at bedtime Code Status: Full code Reviewed ER documentation, lab work, imaging. Reviewed prior [facility] records, lab work, imaging for this Hospital stay. Exam Vital Signs (Last) Date Time Temp Pulse Resp B/P Pulse Ox O2 Delivery O2 Flow Rate FiO2 04/05/17 09:19 36.9 70 18 113/64 97 Room Air 04/01/17 11:20 2 Exam General: NAD HEENT: NCAT Heart: RRR, no s3/s4 Lungs: CTA no crackles or wheezes Abd: Soft, non distended Ext: much improved edema L>R NEuro: No focal deficits PSych: Neg for anxiety Test 03/29/17 11:20 03/29/17 11:57 03/30/17 06:24 03/30/17 12:00 Prothrombin Time 11.2sec (8.1-12.5) Prothromb Time International Ratio 1.05ratio Hold Purple Top Tube Received (Received) Hold Blue Top Tube Received (Received) Hold [place] Top Tube Received (Received) Lactic Acid Level 0.9mmol/L (0.4-2.0) Magnesium Level 2.0mg/dL (1.6-2.6) Total Creatine Kinase 202U/L (21-215) Triglycerides Level 350mg/dL (0-149) Cholesterol Level 138mg/dL (100-199) LDL Cholesterol, Calculated 64.000mg/dL (0-99) VLDL Cholesterol 70.000mg/dL HDL Cholesterol 4mg/dL (>39) Cholesterol/HDL Ratio 34.50 (0.0-4.4) Thyroid Stimulating Hormone (TSH) 7.050uIU/mL (0.450-4.500) Urine Random Creatinine 144mg/dL (15-278) Urine Random Sodium 10mEq/L Urine Random Potassium 61.8mEq/L Urine Random Chloride 10mEq/L Test 03/30/17 13:00 03/30/17 17:01 03/31/17 06:00 04/03/17 18:06 Total Bilirubin 0.2mg/dL (0.0-1.2) Aspartate Amino Transf (AST/SGOT) 29U/L (0-50) Alanine Aminotransferase (ALT/SGPT) 32U/L (0-32) Alkaline Phosphatase 132U/L (25-165) Total Protein 5.0g/dL (6.4-8.4) Albumin 2.3g/dL (3.4-5.0) Troponin T 0.013ug/L (0.0-0.011) Pro-B-Type Natriuretic Peptide 55115pl/mL (0-738) Urine Color Straw (YELLOW) Urine Appearance Clear (CLEAR,HAZY) Urine pH 6.0 (5.0-8.0) Urine Specific [place] 1.005 (1.003-1.035) Urine Protein Negativemg/dL (NEG,TRACE) Urine Glucose (UA) Negativemg/dL (NEGATIVE) Urine Ketones Negativemg/dL (NEGATIVE) Urine Occult Blood Trace (NEGATIVE) Urine Nitrite Negative (NEGATIVE) Urine Bilirubin Negative (NEGATIVE) Urine Urobilinogen Normalmg/dL (NORMAL) Urine Leukocyte Esterase Small (NEGATIVE) Urine RBC 0-2/hpf (0-2) Urine WBC 0-5/hpf (0-5) Urine Epithelial Cells None/hpf (NONE-MOD) Urine Crystals None seen (NONE SEEN) Urine Bacteria Few/hpf (NONE-FEW) Urine Hyaline Casts None/lpf (NONE) Urine Granular Casts None seen (NONE SEEN) Urine Waxy Casts None seen (NONE SEEN) Urine Red Blood Cell Casts None seen (NONE SEEN) Urine White Blood Cell Casts None seen (NONE SEEN) Urine Mucus None seen (None Seen) Urine Trichomonas None seen (NONE SEEN) Urine Yeast None (NONE SEEN) Urinalysis Comment None Urine Culture Reflexed Indicated Test 04/04/17 05:38 04/05/17 05:55 Neutrophils (%) (Auto) 69% (40-74) Lymphocytes (%) (Auto) 14% (14-46) Monocytes (%) (Auto) 6% (4-12) Eosinophils (%) (Auto) 5% (0-5) Basophils (%) (Auto) 0% (0-3) Band Neutrophils % 3% (1-5) Metamyelocytes % 2% (0-0) Myelocytes % 1% (0-0) Hematology Comments Rbc Procalcitonin 0.99ng/mL (0.00-0.08) White Blood Count 19.2th/mm3 (3.8-10.1) Red Blood Count 3.65mil/mm3 (3.90-5.20) Hemoglobin 10.5g/dL (12.0-15.6) Hematocrit 31.9% (35.0-46.0) Mean Corpuscular Volume 87.4fL (81-100) Mean Corpuscular Hemoglobin 28.8pg (27.0-35.0) Mean Corpuscular Hemoglobin Concent 32.9% (32.0-37.0) Red Cell Distribution Width 15.1% (12.3-15.4) Platelet Count 289bil/L (150-400) Sodium Level 140mEq/L (134-144) Potassium Level 3.8mEq/L (3.5-5.2) Chloride Level 103mEq/L (97-108) Carbon Dioxide Level 24mmol/L (18-29) Blood Urea Nitrogen 24mg/dL (8-27) Creatinine 1.29mg/dL (0.57-1.00) Estimat Glomerular Filtration Rate 56mL/min (>59) Glucose Level 110mg/dL (60-99) Calcium Level 8.1mg/dL (8.5-10.1) Microbiology Results DANYELLE CULT URINE Final 03/31/17 Organism 1 ESCHERICHIA COLI U COLONY COUNT/QUANTITY >100,000 CFU/ml 1. ESCHERICHIA COLI M.I.C Interp --------- ------ * AMOXICILLIN/CLAVULATE 4 S * AMPICILLIN 8 S * CEFAZOLIN (CEPHALOSPORIN) UTI 4 S * CEFEPIME <=1 S * CEFTRIAXONE <=1 S * CEFUROXIME SODIUM 16 I * CIPROFLOXACIN <=0.25 S * ERTAPENEM <=0.5 S * GENTAMICIN <=1 S * IMIPENEM <=1 S * LEVOFLOXACIN <=0.12 S * NITROFURANTOIN 32 S * TETRACYCLINE <=1 S * TOBRAMYCIN <=1 S * TRIMETHOPRIM/SULFAMETHOXAZOLE <=20 S Microbiology 03/29/17 Blood Culture - Preliminary, Resulted Positive Blood Culture, Ecoli. 03/30/17 C. difficile DNA Amplification - Final, Complete, neg. 03/29/17 Urine Culture - Final, Complete Escherichia Coli Discharge Medications Discharge Medications Amlodipine (Amlodipine) 2.5 Mg Tablet 2.5 MG PO DAILY (Reported) Aspirin (Aspirin) 81 Mg Tablet 81 MG PO HS (Reported) Calcium Carbonate/Vitamin D3 (Calcium + Vitamin D Tablet) 1 Each Tablet 1 EACH PO BID (Reported) Lactobacillus Acidophilus (Acidophilus) 1 Each Capsule 1 EACH PO BIDWM Prescribed by: DORETHA YU DO Levofloxacin (Levaquin) 500 Mg Tablet 500 MG PO DAILYAC Prescribed by: DORETHA YU DO Levothyroxine (Levothyroxine) 100 Mcg Tablet 100 MCG PO DAILY (Reported) Losartan/HCTZ 100-25 mg (Hyzaar 100-25 mg) 1 Each Tablet 1 TABLET PO DAILY ( Reported) Metoprolol Tartrate (Metoprolol Tartrate) 50 Mg Tablet 50 MG PO BID (Reported) Simvastatin (Simvastatin) 20 Mg Tablet 20 MG PO HS (Reported) Vit A/Vit C/Vit E/Zinc/Copper (Preservision Areds Softgel) 1 Each Capsule 1 EACH PO BID (Reported) As needed Benzonatate (Tessalon Perle) 100 Mg Capsule 100 MG PO TID PRN PRN For Cough Prescribed by: DORETHA YU DO Guaifenesin/Codeine Phosphate (Cheratussin AC Syrup) 118 Ml Liquid 5 ML PO Q4H PRN PRN For Cough Prescribed by: DORETHA YU DO Durable Medical Equipment ([Bed Side Commode]) (DME) Prescribed by: DORETHA YU DO Additional med instructions New medication levaquin antibiotic through 04/11/17 Acidophilus to help with probiotics to avoid diarrhea Robitussin AC and tessalon pels to help with cough Followup Plan Follow-up plan Follow up CBC and BMP in four days F/U with PCP in one week F/U with Urology in one week w/Dr. Maura Cox We request that patient follows up with PCP for possible barium swallow study as outpatient, and possible GI referral for an EGD Discharge Diet: Heart Healthy Discharge Activity: No restrictions Time spent Greater than 30 minutes was spent in preparation of discharge with greater than 50% of that time dedicated to patient counseling and coordination of care. Doretha Yu DO Apr 05, 2017 12:06
== END 2017-04-05 13:51 | disposition home or self-care (01) | DRG 871 ==
LOC: SED 10:51 → EDBD 10:51 → UNDOADMIN 13:52 → MPC 13:52
PROVIDERS: ADMIT Neuromusculoskeletal Medicine & OMM; ATTEND Neuromusculoskeletal Medicine & OMM
PROC: BT1FZZZ Fluoroscopy of Left Kidney, Ureter and Bladder (ICD-10-PCS; principal; 2017-03-29)
PROC: 0T778DZ Dilation of Left Ureter with Intraluminal Device, Via Natural or Artificial Opening Endoscopic (ICD-10-PCS; 2017-03-29)
DX: A41.51 Sepsis due to Escherichia coli [E. coli] (principal); N17.0 Acute kidney failure with tubular necrosis; J69.0 Pneumonitis due to inhalation of food and vomit; G93.40 Encephalopathy, unspecified; N30.00 Acute cystitis without hematuria; E87.2 Acidosis; N13.6 Pyonephrosis; J90 Pleural effusion, not elsewhere classified; M62.82 Rhabdomyolysis; N13.30 Unspecified hydronephrosis; E86.0 Dehydration; Z87.440 Personal history of urinary (tract) infections; I10 Essential (primary) hypertension; E03.9 Hypothyroidism, unspecified; E78.5 Hyperlipidemia, unspecified; K21.9 Gastro-esophageal reflux disease without esophagitis; E83.42 Hypomagnesemia; E87.6 Hypokalemia; I50.9 Heart failure, unspecified